=== PATIENT | male | born 1950 | race Caucasian/White ===

== ENCOUNTER 2019-07-26 00:46 | Inpatient (IN) | payer MEDICARE ==
[2019-07-26 13:49] VITALS: BP 138/57
[2019-07-26] MEDS ORDERED: Magnesium Hydroxide (MOM) 30 mL UDC PO PRN (14:22)
--- NOTE | 2019-07-26 18:48 | History and Physical ---
History of Present Illness - HPI Chief Complaint: 68 y/o male patient was brought into ER on a 5150 Hold. HPI: 68 y/o male patient was brought into [facility] on a 5150 Hold. Patient has history of TIA, CAD, Hyperlipidemia, Shizoaffective disorder, Bipolar disorder and Dementia. Patient had an ER assessment and a complete workup was done. Patient was diagnosed with Dementia with behavioral disturbances, Schizoaffective disorder, H/o of CAD, H/o Stroke and H/o Hyperlipidemia. Patient will have a Psych evaluation. I will follow, treat and monitor patient. Patient will continue current treatment plan a s ordered. Vital Signs: Last Vital Signs Temp 96.8 F 07/26/19 15:31 Pulse 68 07/26/19 15:31 Resp 19 07/26/19 15:31 BP 138/57 07/26/19 15:31 Pulse Ox 96 07/26/19 15:31 Past Medical History Cardiovascular: Report: CAD Pulmonary: Report: No Pertinent Hx, Pulmonary Embolus [employer]IAN: Report: Dementia GI: Report: No Pertinent Hx Psych: Report: Other (Schizoaffective disorder.) Musculoskeletal: Report: No Pertinent Hx Rheumatologic: Report: No pertinent Hx Infectious Disease: Report: No Pertinent Hx Renal/: Report: No Pertinent Hx Family Medical History - Family Member Son History Unknown: Yes Social History Smoke: No Alcohol: None Drugs: None Lives: Fdc Domestic Violence: Negative Health Maintenance Health Maintenance: Other (Please see chart.) - Medications Home Medications: Home Medication Medication Instructions Recorded Type Acetaminophen [Tylenol] 650 mg PO Q4H PRN tab 08/08/19 Rx Al Hyd/Mg Hyd/Simethicone [Maalox] 30 ml PO Q4HR PRN udc 08/08/19 Rx Aspirin 325 mg PO DAILY tab 08/08/19 Rx Atorvastatin Calcium [Lipitor] 80 mg PO HS tab 08/08/19 Rx Clopidogrel [Plavix] 75 mg PO DAILY tab 08/08/19 Rx Divalproex Sprinkle [Depakote 250 mg PO DAILY ecc 08/08/19 Rx Sprinkle] Divalproex Sprinkle [Depakote 500 mg PO HS ecc 08/08/19 Rx Sprinkle] Docusate Sodium [Colace] 100 mg PO BID cap 08/08/19 Rx Lorazepam [Ativan] 0.5 mg PO Q4H PRN tab 08/08/19 Rx Magnesium Hydroxide [Milk of 30 ml PO HS PRN udc 08/08/19 Rx Magnesia] Menthol/Zinc Oxide [Calmoseptine] 1 appl TP QID PRN appl 08/08/19 Rx QUEtiapine Fumarate [SEROquel] 50 mg PO BID tab 08/08/19 Rx QUEtiapine Fumarate [SEROquel] 150 mg PO HS tab 08/08/19 Rx QUEtiapine Fumarate [SEROquel] 150 mg PO HS tab 08/08/19 Rx Zolpidem Tartrate [Ambien] 5 mg PO HS PRN tab 08/08/19 Rx Acetaminophen [Tylenol] 650 mg PO Q4H PRN tab 08/14/19 Rx Al Hyd/Mg Hyd/Simethicone [Maalox] 30 ml PO Q4HR PRN udc 08/14/19 Rx Aspirin 325 mg PO DAILY tab 08/14/19 Rx Atorvastatin Calcium [Lipitor] 80 mg PO DAILY tab 08/14/19 Rx Clopidogrel [Plavix] 75 mg PO DAILY tab 08/14/19 Rx Divalproex Sprinkle [Depakote 250 mg PO DAILY ecc 08/14/19 Rx Sprinkle] Divalproex Sprinkle [Depakote 500 mg PO HS ecc 08/14/19 Rx Sprinkle] Docusate Sodium [Colace] 100 mg PO BID cap 08/14/19 Rx Lorazepam [Ativan] 0.5 mg PO Q4HR PRN tab 08/14/19 Rx Magnesium Hydroxide [Milk of 30 ml PO HS PRN udc 08/14/19 Rx Magnesia] Menthol/Zinc Oxide [Calmoseptine] 1 appl TP QID PRN appl 08/14/19 Rx QUEtiapine Fumarate [SEROquel] 50 mg PO BID tab 08/14/19 Rx QUEtiapine Fumarate [SEROquel] 200 mg PO HS tab 08/14/19 Rx Zolpidem Tartrate [Ambien] 5 mg PO HS PRN tab 08/14/19 Rx Other Medications: Please see medication reconciliation sheet. - Allergies Allergies/Adverse Reactions: Allergies Allergy/AdvReac Type Severity Reaction Status Date / Time No Known Allergies Allergy Verified 06/29/19 17:24 Review of Systems - Review of Systems Review of Systems: patient is on 5150 hold due to hostile behavior towards staff. Constitutional: Report: No Significant Eyes: Report: No Significant ENT: Report: No Significant Respiratory: Report: No Significant Cardiovascular: Report: No Significant Gastrointestinal: Report: No Significant Genitourinary: Report: No Significant Musculoskeletal: Report: No Significant Skin: Report: No Significant Neurological: Report: Confusion Physical Exam - Physical Exam HEENT: Report: Ears Nose Throat within normal limits Neck: Report: Within normal limits Cardiovascular Systems: Report: +s1/s2 noted Respiratory: Report: Breath Sounds are within normal limits Abdomen: Report: Non-tender to palpation Back: Report: Inspection of back is within normal limits. Extremities: Report: Non-tender to palpation. Skin: Report: Color of skin is within normal limits Neuro/Psych: Report: Disoriented to name time or place - Lab Results All Lab Results last 24 hours: please see orders. - Assessment Assessment: Dementia with behavioral disturbances. Schizoaffective disorder. History of Stroke. History of Hyperlipidemia. History of TIA. History of CAD. - Plan Plan: Continuation of care. Monitor vitals and labs. Continue present meds as directed. Monitor diet/nutritional support. Supportive care. Psych management per Psych. Continue current treatment plan as ordered.
[2019-07-27] MEDS ORDERED: Maalox 30 mL Cup PO PRN (09:10)
--- NOTE | 2019-07-28 09:29 | Consultation ---
DATE OF CONSULTATION: 07/27/2019 The patient was seen and evaluated. The patient's chart reviewed. The patient was brought in here on a 5150. He was selectively mute, disoriented, needing redirection and easily agitated. Today, on [id number] evaluation, the patient is in the Idalia chair. He is observed to be responding, making hand gestures in regards to the voices, easily irritable, agitated, needing a lot of redirection. ALLERGIES TO MEDICATIONS: NKDA. PREVIOUS DIAGNOSES: TIA, CAD, hyperlipidemia. PREVIOUS PSYCHIATRIC HISTORY: History of schizoaffective disorder, bipolar type; dementia. MEDICAL: Please see H and P. ESTIMATED LENGTH OF STAY: Between 5-10 days. MENTAL STATUS EXAMINATION: Older age appearing, Idalia chair, disengaged, confused, disorganized, and at times talking to himself. SOCIAL HISTORY: Not answering questions about social history. FAMILY PSYCHIATRIC HISTORY: Unclear. MEDICATIONS: Per records from [facility], medications reviewed, include acetaminophen, aspirin, ____, Coreg, Depakote, Ativan as needed, Maalox, Seroquel 100 mg a day, 200 at nighttime. PROVISIONAL DIAGNOSTIC IMPRESSION: PRIMARY DIAGNOSES: Dementia with behavior disturbances, schizoaffective disorder. MEDICAL DIAGNOSIS: As noted above. PLAN: 1. Admit the patient. 2. I will obtain more collateral baseline information. 3. Continue to monitor, supervise. 4. Further collaborate on the patient's medication regimen reconciliation from the reports, the patient's Seroquel 50 mg p.o. b.i.d. There is an additional 25 mg, a total of 75 mg p.o. b.i.d. of the Seroquel, Depakote, ____, total Depakote levels pending. We will continue monitoring and evaluating. JOB# [id number]
--- NOTE | 2019-07-28 09:48 | Internal Medicine Prog Note ---
Internal Medicine Subjective - Subjective Patient seen and examined:: with staff Patient is:: awake, aren chair, agitated, confused Per staff patient has:: no adverse event, no episodes of fall, agitated, confused Internal Medicine Objective - Physical Exam Vitals and I&O: Vital Signs Temp 97.8 F 07/28/19 06:01 Pulse 83 07/28/19 06:01 Resp 18 07/28/19 06:01 BP 115/57 07/28/19 06:01 Pulse Ox 96 07/28/19 06:01 Intake & Output 07/27/19 07/28/19 07/28/19 18:59 06:59 18:59 Intake Total 1200 480 Output Total 2 Balance 1200 478 Intake: Oral 1200 480 Output: Urine/Stool Mix 2 Other: # Voids 1 # Bowel Movements 1 1 Active Medications: Current Medications Acetaminophen (Tylenol) 650 mg PO Q4H PRN PRN Reason: Mild Pain/Headache/T above 101 Stop: 09/24/19 14:21 Al Hydrox/Mg Hydrox/Simethicone (Maalox) 30 ml PO Q4HR PRN PRN Reason: FPR HEARTBURN Stop: 09/25/19 09:09 Aspirin (Aspirin) 325 mg PO DAILY [facility] Stop: 09/25/19 08:59 Last Admin: 07/28/19 08:44 Dose: 325 mg Atorvastatin Calcium (Lipitor) 80 mg PO HS [facility]; Protocol Stop: 09/25/19 20:59 Last Admin: 07/27/19 21:20 Dose: 80 mg Clopidogrel Bisulfate (Plavix) 75 mg PO DAILY [facility] Stop: 09/25/19 08:59 Last Admin: 07/28/19 08:44 Dose: 75 mg Divalproex Sodium (Depakote Er) 250 mg PO HS [facility]; Protocol Stop: 09/25/19 20:59 Last Admin: 07/27/19 21:20 Dose: 250 mg Divalproex Sodium (Depakote Er) 250 mg PO QPM [facility]; Protocol Stop: 09/25/19 16:59 Last Admin: 07/27/19 18:14 Dose: 250 mg Docusate Sodium (Colace) 100 mg PO BID [facility] Stop: 09/25/19 16:59 Last Admin: 07/28/19 08:44 Dose: 100 mg Lorazepam (Ativan) 0.5 mg PO Q4H PRN; Protocol PRN Reason: Anxiety/Agitation Stop: 09/24/19 14:21 Last Admin: 07/28/19 08:44 Dose: 0.5 mg Magnesium Hydroxide (Milk Of Magnesia) 30 ml PO HS PRN PRN Reason: Constipation Stop: 09/24/19 14:21 Quetiapine Fumarate (Seroquel) 75 mg PO BID [facility]; Protocol Stop: 09/26/19 08:59 Last Admin: 07/28/19 08:44 Dose: 75 mg Zolpidem Tartrate (Ambien) 5 mg PO HS PRN PRN Reason: Insomnia Stop: 09/24/19 14:21 Last Admin: 07/27/19 21:24 Dose: 5 mg General: weak, alert, disheveled HEENT: NC/AT Neck: Supple, No JVD Lungs: other (no acute respiratory distress) Cardiovascular: RRR Abdomen: soft, non-tender, non-distended Extremities: ecchymosis Neurological: unable to follow command (confused, demented) Internal Medicine Assmt/Plan - Assessment Assessment: Dementia Schizoaffective disorder Hx CAD Hx Stoke Hyperlipidemia - Plan Plan: Continue current treatment plan. Monitor Labs.Continue current medications Continue to monitor VS Monitor Diet/Nutritional support. Psych management per Psychiatry. Pain Management. Wound Care consult - pending - ordered yesterday PT/OT prn Safety precaution, Fall precaution, frequent nursing round. Supportive care. Continue collaborating with consulting specialists, case management and nursing team.
--- NOTE | 2019-07-28 18:53 | Progress Notes ---
DATE: 07/28/2019 SUBJECTIVE: The patient was seen and evaluated. The patient's chart reviewed. Today on [id number] evaluation, the patient is in Id[place] chair. He is extremely uncomfortable, moving, restless, needs a lot of redirection to minimize to behavior. He is to have difficulty verbalizing what he is experiencing further review of the chart. I reviewed that the patient has a history of buttock sacral ulcer. I spoke with the patient's nurse the importance of followup today with the medical evaluation to further assess the patient's sacral buttocks ulcer as this make me contributing to the patient's behavior and irritability. ASSESSMENT AND PLAN: The patient has history of schizoaffective disorder, dementia, was also medications from the group home reviewed. The patient has had been on 2 different antipsychotics which is unclear and recently had been re-titrated to 75 mg p.o. b.i.d. of the Seroquel. We will continue with the current medication regimen and awaiting medical evaluation to continue further assessing the patient's sacral ulcer. Vitals, pulse and temperature within normal limits. JOB# [id number]
--- NOTE | 2019-07-29 09:49 | Internal Medicine Prog Note ---
Internal Medicine Subjective - Subjective Service Date: 07/29/19 Patient seen and examined:: with staff Patient is:: awake, aren chair, agitated, confused Patient Complaints of:: other (Anxiety.) Per staff patient has:: no adverse event, no episodes of fall, agitated, confused Internal Medicine Objective - Physical Exam Vitals and I&O: Vital Signs Temp 97.9 F 07/29/19 06:00 Pulse 81 07/29/19 06:00 Resp 19 07/29/19 06:00 BP 136/80 07/29/19 06:00 Pulse Ox 95 07/29/19 06:00 Intake & Output 07/28/19 07/29/19 07/29/19 18:59 06:59 18:59 Intake Total 850 180 Output Total 1 Balance 850 179 Intake: Oral 850 180 Output: Urine/Stool Mix 1 Other: # Voids 3 1 # Bowel Movements 1 1 Active Medications: Current Medications Acetaminophen (Tylenol) 650 mg PO Q4H PRN PRN Reason: Mild Pain/Headache/T above 101 Stop: 09/24/19 14:21 Al Hydrox/Mg Hydrox/Simethicone (Maalox) 30 ml PO Q4HR PRN PRN Reason: FPR HEARTBURN Stop: 09/25/19 09:09 Aspirin (Aspirin) 325 mg PO DAILY [facility] Stop: 09/25/19 08:59 Last Admin: 07/28/19 08:44 Dose: 325 mg Atorvastatin Calcium (Lipitor) 80 mg PO HS [facility]; Protocol Stop: 09/25/19 20:59 Last Admin: 07/28/19 21:57 Dose: 80 mg Clopidogrel Bisulfate (Plavix) 75 mg PO DAILY [facility] Stop: 09/25/19 08:59 Last Admin: 07/28/19 08:44 Dose: 75 mg Divalproex Sodium (Depakote Er) 250 mg PO HS [facility]; Protocol Stop: 09/25/19 20:59 Last Admin: 07/28/19 21:57 Dose: 250 mg Divalproex Sodium (Depakote Er) 250 mg PO QPM [facility]; Protocol Stop: 09/25/19 16:59 Last Admin: 07/28/19 16:33 Dose: 250 mg Docusate Sodium (Colace) 100 mg PO BID [facility] Stop: 09/25/19 16:59 Last Admin: 07/28/19 16:32 Dose: 100 mg Lorazepam (Ativan) 0.5 mg PO Q4H PRN; Protocol PRN Reason: Anxiety/Agitation Stop: 09/24/19 14:21 Last Admin: 07/28/19 08:44 Dose: 0.5 mg Magnesium Hydroxide (Milk Of Magnesia) 30 ml PO HS PRN PRN Reason: Constipation Stop: 09/24/19 14:21 Quetiapine Fumarate (Seroquel) 75 mg PO BID [facility]; Protocol Stop: 09/26/19 08:59 Last Admin: 07/28/19 16:32 Dose: 75 mg Zolpidem Tartrate (Ambien) 5 mg PO HS PRN PRN Reason: Insomnia Stop: 09/24/19 14:21 Last Admin: 07/27/19 21:24 Dose: 5 mg General: weak, alert, disheveled HEENT: NC/AT Neck: Supple, No JVD Lungs: other (no acute respiratory distress) Cardiovascular: RRR Abdomen: soft, non-tender, non-distended Extremities: ecchymosis Neurological: no change, unable to follow command (confused, demented) Internal Medicine Assmt/Plan - Assessment Assessment: Dementia. Schizoaffective disorder. H/o CAD. H/o Stroke. H/o Hyperlipidemia. - Plan Plan: Continuation of care. Monitor labs and vitals. Monitor diet/nutritional support. Psych management per Psych. Continue present meds as directed. Continue current treatment plan as ordered. Nutritional Asmnt/Malnutr-PDOC - Dietary Evaluation Malnutrition Findings (Please click <Entered> for more info): see orders
--- NOTE | 2019-07-29 23:58 | Progress Notes ---
DATE: 07/29/2019 SUBJECTIVE: The patient in the hospital. Currently in a [place] chair, very confused, disoriented, not really answering any questions, difficult interview. Noted to be restless, needing a lot of redirection, history of schizoaffective, ulcers as well. Medication adjustments have been made. Very confused, AO to essentially 1 only, preoccupied, irritable, disorganized. Medications were noted. We will continue to monitor. JOB# [id number]
--- NOTE | 2019-07-30 16:46 | Internal Medicine Prog Note ---
Internal Medicine Subjective - Subjective Service Date: 07/30/19 Patient is:: awake, aren chair, agitated, confused Patient Complaints of:: other (Anxiety.) Per staff patient has:: no adverse event, no episodes of fall, agitated, confused Internal Medicine Objective - Physical Exam Vitals and I&O: Vital Signs Temp 97.7 F 07/30/19 14:00 Pulse 75 07/30/19 14:00 Resp 18 07/30/19 14:00 BP 115/67 07/30/19 14:00 Pulse Ox 97 07/30/19 14:00 Intake & Output 07/29/19 07/30/19 07/30/19 18:59 06:59 18:59 Intake Total 800 120 Output Total 1 Balance 800 119 Intake: Oral 800 120 Output: Urine/Stool Mix 1 Other: # Voids 3 1 # Bowel Movements 2 1 Stool Characteristics Soft Formed Brown Active Medications: Current Medications Acetaminophen (Tylenol) 650 mg PO Q4H PRN PRN Reason: Mild Pain/Headache/T above 101 Stop: 09/24/19 14:21 Al Hydrox/Mg Hydrox/Simethicone (Maalox) 30 ml PO Q4HR PRN PRN Reason: FPR HEARTBURN Stop: 09/25/19 09:09 Aspirin (Aspirin) 325 mg PO DAILY [facility] Stop: 09/25/19 08:59 Last Admin: 07/30/19 09:23 Dose: Not Given Atorvastatin Calcium (Lipitor) 80 mg PO HS [facility]; Protocol Stop: 09/25/19 20:59 Last Admin: 07/29/19 22:00 Dose: 80 mg Clopidogrel Bisulfate (Plavix) 75 mg PO DAILY [facility] Stop: 09/25/19 08:59 Last Admin: 07/30/19 09:23 Dose: Not Given Divalproex Sodium (Depakote Er) 250 mg PO HS [facility]; Protocol Stop: 09/25/19 20:59 Last Admin: 07/29/19 22:00 Dose: 250 mg Divalproex Sodium (Depakote Er) 250 mg PO QPM [facility]; Protocol Stop: 09/25/19 16:59 Last Admin: 07/29/19 17:50 Dose: 250 mg Docusate Sodium (Colace) 100 mg PO BID [facility] Stop: 09/25/19 16:59 Last Admin: 07/30/19 09:23 Dose: Not Given Lorazepam (Ativan) 0.5 mg PO Q4H PRN; Protocol PRN Reason: Anxiety/Agitation Stop: 09/24/19 14:21 Last Admin: 07/30/19 13:55 Dose: 0.5 mg Magnesium Hydroxide (Milk Of Magnesia) 30 ml PO HS PRN PRN Reason: Constipation Stop: 09/24/19 14:21 Quetiapine Fumarate 25 mg/ (Quetiapine Fumarate 50 mg) 75 mg PO BID [facility] Stop: 09/28/19 08:59 Last Admin: 07/30/19 09:23 Dose: Not Given Zolpidem Tartrate (Ambien) 5 mg PO HS PRN PRN Reason: Insomnia Stop: 09/24/19 14:21 Last Admin: 07/27/19 21:24 Dose: 5 mg General: weak, alert, disheveled HEENT: NC/AT Neck: Supple, No JVD Lungs: other (no acute respiratory distress) Cardiovascular: RRR Abdomen: soft, non-tender, non-distended Extremities: ecchymosis Neurological: no change, unable to follow command (confused, demented) Internal Medicine Assmt/Plan - Assessment Assessment: Dementia. Schizoaffective disorder. H/o CAD. H/o Stroke. H/o Hyperlipidemia. - Plan Plan: Continuation of care. Monitor labs and vitals. Monitor diet/nutritional support. Psych management per Psych. Continue present meds as directed. Continue current treatment plan as ordered.
--- NOTE | 2019-07-31 14:41 | Internal Medicine Prog Note ---
Internal Medicine Subjective - Subjective Service Date: 07/31/19 Patient seen and examined:: with staff Patient is:: awake, aren chair, agitated, confused Patient Complaints of:: other (Anxiety.) Per staff patient has:: no adverse event, no episodes of fall, agitated, confused Internal Medicine Objective - Physical Exam Vitals and I&O: Vital Signs Temp 97.6 F 07/31/19 05:21 Pulse 60 07/31/19 05:21 Resp 19 07/31/19 05:21 BP 109/62 07/31/19 05:21 Pulse Ox 97 07/31/19 05:21 Intake & Output 07/30/19 07/31/19 07/31/19 18:59 06:59 18:59 Intake Total 700 180 Balance 700 180 Intake: Oral 700 180 Other: # Voids 3 1 # Bowel Movements 0 0 Active Medications: Current Medications Acetaminophen (Tylenol) 650 mg PO Q4H PRN PRN Reason: Mild Pain/Headache/T above 101 Stop: 09/24/19 14:21 Al Hydrox/Mg Hydrox/Simethicone (Maalox) 30 ml PO Q4HR PRN PRN Reason: FPR HEARTBURN Stop: 09/25/19 09:09 Aspirin (Aspirin) 325 mg PO DAILY [facility] Stop: 09/25/19 08:59 Last Admin: 07/31/19 08:17 Dose: 325 mg Atorvastatin Calcium (Lipitor) 80 mg PO HS [facility]; Protocol Stop: 09/25/19 20:59 Last Admin: 07/30/19 21:34 Dose: 80 mg Clopidogrel Bisulfate (Plavix) 75 mg PO DAILY [facility] Stop: 09/25/19 08:59 Last Admin: 07/31/19 08:17 Dose: 75 mg Divalproex Sodium (Depakote Sprinkle) 250 mg PO HS [facility]; Protocol Stop: 09/29/19 20:59 Divalproex Sodium (Depakote Sprinkle) 250 mg PO QPM [facility]; Protocol Stop: 09/29/19 16:59 Docusate Sodium (Colace) 100 mg PO BID [facility] Stop: 09/25/19 16:59 Last Admin: 07/31/19 08:17 Dose: 100 mg Lorazepam (Ativan) 0.5 mg PO Q4H PRN; Protocol PRN Reason: Anxiety/Agitation Stop: 09/24/19 14:21 Last Admin: 07/30/19 13:55 Dose: 0.5 mg Magnesium Hydroxide (Milk Of Magnesia) 30 ml PO HS PRN PRN Reason: Constipation Stop: 09/24/19 14:21 Quetiapine Fumarate 25 mg/ (Quetiapine Fumarate 50 mg) 75 mg PO BID [facility] Stop: 09/28/19 08:59 Last Admin: 07/31/19 08:17 Dose: 75 mg Zolpidem Tartrate (Ambien) 5 mg PO HS PRN PRN Reason: Insomnia Stop: 09/24/19 14:21 Last Admin: 07/27/19 21:24 Dose: 5 mg Physical Exam: Patient is easily agitated and very confused. General: weak, alert, disheveled HEENT: NC/AT Neck: Supple, No JVD Lungs: other (no acute respiratory distress) Cardiovascular: RRR Abdomen: soft, non-tender, non-distended Extremities: ecchymosis Neurological: no change, unable to follow command (confused, demented) Internal Medicine Assmt/Plan - Assessment Assessment: Dementia. Schizoaffective disorder. H/o CAD. H/o Stroke. H/o Hyperlipidemia. - Plan Plan: Continuation of care. Monitor labs and vitals. Monitor diet/nutritional support. Psych management per Psych. Continue present meds as directed. Continue current treatment plan as ordered. Nutritional Asmnt/Malnutr-PDOC - Dietary Evaluation Malnutrition Findings (Please click <Entered> for more info): see orders.
--- NOTE | 2019-07-31 14:44 | Internal Medicine Prog Note ---
Internal Medicine Subjective - Subjective Service Date: 07/31/19 Patient seen and examined:: with staff Patient is:: awake, aren chair, agitated, confused Patient Complaints of:: other (Anxiety.) Per staff patient has:: no adverse event, no episodes of fall, agitated, confused Internal Medicine Objective - Physical Exam Vitals and I&O: Vital Signs Temp 97.6 F 07/31/19 05:21 Pulse 60 07/31/19 05:21 Resp 19 07/31/19 05:21 BP 109/62 07/31/19 05:21 Pulse Ox 97 07/31/19 05:21 Intake & Output 07/30/19 07/31/19 07/31/19 18:59 06:59 18:59 Intake Total 700 180 Balance 700 180 Intake: Oral 700 180 Other: # Voids 3 1 # Bowel Movements 0 0 Active Medications: Current Medications Acetaminophen (Tylenol) 650 mg PO Q4H PRN PRN Reason: Mild Pain/Headache/T above 101 Stop: 09/24/19 14:21 Al Hydrox/Mg Hydrox/Simethicone (Maalox) 30 ml PO Q4HR PRN PRN Reason: FPR HEARTBURN Stop: 09/25/19 09:09 Aspirin (Aspirin) 325 mg PO DAILY [facility] Stop: 09/25/19 08:59 Last Admin: 07/31/19 08:17 Dose: 325 mg Atorvastatin Calcium (Lipitor) 80 mg PO HS [facility]; Protocol Stop: 09/25/19 20:59 Last Admin: 07/30/19 21:34 Dose: 80 mg Clopidogrel Bisulfate (Plavix) 75 mg PO DAILY [facility] Stop: 09/25/19 08:59 Last Admin: 07/31/19 08:17 Dose: 75 mg Divalproex Sodium (Depakote Sprinkle) 250 mg PO HS [facility]; Protocol Stop: 09/29/19 20:59 Divalproex Sodium (Depakote Sprinkle) 250 mg PO QPM [facility]; Protocol Stop: 09/29/19 16:59 Docusate Sodium (Colace) 100 mg PO BID [facility] Stop: 09/25/19 16:59 Last Admin: 07/31/19 08:17 Dose: 100 mg Lorazepam (Ativan) 0.5 mg PO Q4H PRN; Protocol PRN Reason: Anxiety/Agitation Stop: 09/24/19 14:21 Last Admin: 07/30/19 13:55 Dose: 0.5 mg Magnesium Hydroxide (Milk Of Magnesia) 30 ml PO HS PRN PRN Reason: Constipation Stop: 09/24/19 14:21 Quetiapine Fumarate 25 mg/ (Quetiapine Fumarate 50 mg) 75 mg PO BID [facility] Stop: 09/28/19 08:59 Last Admin: 07/31/19 08:17 Dose: 75 mg Zolpidem Tartrate (Ambien) 5 mg PO HS PRN PRN Reason: Insomnia Stop: 09/24/19 14:21 Last Admin: 07/27/19 21:24 Dose: 5 mg Physical Exam: Patient is still very confused and in irritable mood. General: weak, alert, disheveled HEENT: NC/AT Neck: Supple, No JVD Lungs: other (no acute respiratory distress) Cardiovascular: RRR Abdomen: soft, non-tender, non-distended Extremities: ecchymosis Neurological: no change, unable to follow command (confused, demented) Internal Medicine Assmt/Plan - Assessment Assessment: Dementia. Schizoaffective disorder. H/o CAD. H/o Stroke. H/o Hyperlipidemia. - Plan Plan: Continuation of care. Monitor labs and vitals. Monitor diet/nutritional support. Psych management per Psych. Continue present meds as directed. Continue current treatment plan as ordered. Nutritional Asmnt/Malnutr-PDOC - Dietary Evaluation Malnutrition Findings (Please click <Entered> for more info): see orders.
--- NOTE | 2019-07-31 16:38 | Progress Notes ---
DATE: 07/30/2019 SUBJECTIVE: The patient is still confused and disoriented. The patient also is still having difficulty with his mood and difficulty with expressing himself. The patient also is still restless and has mood swings. Otherwise, the patient is compliant with medications with no side effects. ASSESSMENT: The patient is still confused and irritable with mood swings. TREATMENT PLAN: We will continue monitoring his behavior closely. Also, we will continue Seroquel and Depakote and we will get Depakote blood level today and continue to follow up. JOB# [id number]
--- NOTE | 2019-08-01 14:58 | Internal Medicine Prog Note ---
Internal Medicine Subjective - Subjective Service Date: 08/01/19 Patient is:: awake, aren chair, agitated, confused Patient Complaints of:: other (Anxiety.) Per staff patient has:: no adverse event, no episodes of fall, agitated, confused Internal Medicine Objective - Physical Exam Vitals and I&O: Vital Signs Temp 97.2 F 07/31/19 20:45 Pulse 74 07/31/19 20:45 Resp 20 07/31/19 20:45 BP 102/70 07/31/19 20:45 Pulse Ox 97 07/31/19 20:45 Intake & Output 07/31/19 08/01/19 08/01/19 18:59 06:59 18:59 Intake Total 800 120 Balance 800 120 Intake: Oral 800 120 Other: # Voids 3 3 # Bowel Movements 1 Active Medications: Current Medications Acetaminophen (Tylenol) 650 mg PO Q4H PRN PRN Reason: Mild Pain/Headache/T above 101 Stop: 09/24/19 14:21 Last Admin: 07/31/19 20:17 Dose: 650 mg Al Hydrox/Mg Hydrox/Simethicone (Maalox) 30 ml PO Q4HR PRN PRN Reason: FPR HEARTBURN Stop: 09/25/19 09:09 Aspirin (Aspirin) 325 mg PO DAILY DANNY Stop: 09/25/19 08:59 Last Admin: 08/01/19 08:13 Dose: 325 mg Atorvastatin Calcium (Lipitor) 80 mg PO HS DANNY; Protocol Stop: 09/25/19 20:59 Last Admin: 07/31/19 20:16 Dose: 80 mg Calamine/Phenol (Calmoseptine) 1 appl TP QID PRN PRN Reason: Skin Irritation Stop: 09/29/19 17:06 Clopidogrel Bisulfate (Plavix) 75 mg PO DAILY DANNY Stop: 09/25/19 08:59 Last Admin: 08/01/19 08:13 Dose: 75 mg Divalproex Sodium (Depakote Sprinkle) 250 mg PO HS DANNY; Protocol Stop: 09/29/19 20:59 Last Admin: 07/31/19 20:16 Dose: 250 mg Divalproex Sodium (Depakote Sprinkle) 250 mg PO QPM DANNY; Protocol Stop: 09/29/19 16:59 Last Admin: 07/31/19 16:33 Dose: 250 mg Docusate Sodium (Colace) 100 mg PO BID DANNY Stop: 09/25/19 16:59 Last Admin: 08/01/19 08:13 Dose: 100 mg Lorazepam (Ativan) 0.5 mg PO Q4H PRN; Protocol PRN Reason: Anxiety/Agitation Stop: 09/24/19 14:21 Last Admin: 08/01/19 08:13 Dose: 0.5 mg Magnesium Hydroxide (Milk Of Magnesia) 30 ml PO HS PRN PRN Reason: Constipation Stop: 09/24/19 14:21 Quetiapine Fumarate 25 mg/ (Quetiapine Fumarate 50 mg) 75 mg PO BID DANNY Stop: 09/28/19 08:59 Last Admin: 08/01/19 08:13 Dose: 75 mg Zolpidem Tartrate (Ambien) 5 mg PO HS PRN PRN Reason: Insomnia Stop: 09/24/19 14:21 Last Admin: 07/27/19 21:24 Dose: 5 mg General: weak, alert, disheveled HEENT: NC/AT Neck: Supple, No JVD Lungs: other (no acute respiratory distress) Cardiovascular: RRR Abdomen: soft, non-tender, non-distended Extremities: ecchymosis Neurological: no change, unable to follow command (confused, demented) Internal Medicine Assmt/Plan - Assessment Assessment: Dementia. Schizoaffective disorder. H/o CAD. H/o Stroke. H/o Hyperlipidemia. - Plan Plan: Continuation of care. Monitor labs and vitals. Monitor diet/nutritional support. Psych management per Psych. Continue present meds as directed. Continue current treatment plan as ordered.
--- NOTE | 2019-08-01 21:28 | Progress Notes ---
DATE: 07/31/2019 SUBJECTIVE: Chart reviewed and the patient interviewed. Also discussed the patient's condition with the staff and reviewed records and labs. The patient continued to be confused and still has disorganized thoughts. The patient also is preoccupied and is easily irritable and easily agitated especially when talking to him ____. Also unable to carry on any coherent conversation ____, otherwise the patient is continued to be compliant with taking his medication with no side effects from the medications. ASSESSMENT: The patient is still confused and considered to be gravely disabled. TREATMENT PLAN: Continue Seroquel and Depakote at same dose. The patient has been having difficulty swallowing Depakote extended release and changed it to Depakote Sprinkles for easier to swallow. Also, Depakote blood level was ordered and results are pending. Also, questionable if the patient can return to previous placement. JOB# [id number]
[2019-08-02] MEDS: Menthol/Zinc Oxide Oint 113gm Tube TP PRN (00:43)
--- NOTE | 2019-08-02 10:44 | Internal Medicine Prog Note ---
Internal Medicine Subjective - Subjective Service Date: 08/02/19 Patient seen and examined:: with staff Patient is:: awake, aren chair, agitated, confused Patient Complaints of:: other (Anxiety.) Per staff patient has:: no adverse event, no episodes of fall, agitated, confused Internal Medicine Objective - Physical Exam Vitals and I&O: Vital Signs Temp 97.7 F 08/01/19 20:54 Pulse 98 08/01/19 20:54 Resp 20 08/01/19 20:54 BP 100/72 08/01/19 20:54 Pulse Ox 95 08/01/19 20:54 Intake & Output 08/01/19 08/02/19 08/02/19 18:59 06:59 18:59 Intake Total 1300 Balance 1300 Intake: Oral 1300 Other: # Voids 4 # Bowel Movements 0 Active Medications: Current Medications Acetaminophen (Tylenol) 650 mg PO Q4H PRN PRN Reason: Mild Pain/Headache/T above 101 Stop: 09/24/19 14:21 Last Admin: 07/31/19 20:17 Dose: 650 mg Al Hydrox/Mg Hydrox/Simethicone (Maalox) 30 ml PO Q4HR PRN PRN Reason: FPR HEARTBURN Stop: 09/25/19 09:09 Aspirin (Aspirin) 325 mg PO DAILY DANNY Stop: 09/25/19 08:59 Last Admin: 08/02/19 08:40 Dose: 325 mg Atorvastatin Calcium (Lipitor) 80 mg PO HS DANNY; Protocol Stop: 09/25/19 20:59 Last Admin: 08/01/19 20:04 Dose: 80 mg Calamine/Phenol (Calmoseptine) 1 appl TP QID PRN PRN Reason: Skin Irritation Stop: 09/29/19 17:06 Last Admin: 08/02/19 00:43 Dose: 1 appl Clopidogrel Bisulfate (Plavix) 75 mg PO DAILY DANNY Stop: 09/25/19 08:59 Last Admin: 08/02/19 08:39 Dose: 75 mg Divalproex Sodium (Depakote Sprinkle) 250 mg PO HS DANNY; Protocol Stop: 09/29/19 20:59 Last Admin: 08/01/19 20:04 Dose: 250 mg Divalproex Sodium (Depakote Sprinkle) 250 mg PO QPM DANNY; Protocol Stop: 09/29/19 16:59 Last Admin: 08/01/19 17:19 Dose: 250 mg Docusate Sodium (Colace) 100 mg PO BID DANNY Stop: 09/25/19 16:59 Last Admin: 08/02/19 08:40 Dose: 100 mg Lorazepam (Ativan) 0.5 mg PO Q4H PRN; Protocol PRN Reason: Anxiety/Agitation Stop: 09/24/19 14:21 Last Admin: 08/02/19 05:32 Dose: 0.5 mg Magnesium Hydroxide (Milk Of Magnesia) 30 ml PO HS PRN PRN Reason: Constipation Stop: 09/24/19 14:21 Quetiapine Fumarate 25 mg/ (Quetiapine Fumarate 50 mg) 75 mg PO BID DANNY Stop: 09/28/19 08:59 Last Admin: 08/02/19 08:40 Dose: 75 mg Zolpidem Tartrate (Ambien) 5 mg PO HS PRN PRN Reason: Insomnia Stop: 09/24/19 14:21 Last Admin: 08/01/19 20:05 Dose: 5 mg Physical Exam: Patient is gravely disabled and remains very confused. General: weak, alert, disheveled HEENT: NC/AT Neck: Supple, No JVD Lungs: other (no acute respiratory distress) Cardiovascular: RRR Abdomen: soft, non-tender, non-distended Extremities: ecchymosis Neurological: no change, unable to follow command (confused, demented) Internal Medicine Assmt/Plan - Assessment Assessment: Dementia. Schizoaffective disorder. H/o CAD. H/o Stroke. H/o Hyperlipidemia. - Plan Plan: Continuation of care. Monitor labs and vitals. Monitor diet/nutritional support. Psych management per Psych. Continue present meds as directed. Continue current treatment plan as ordered. Nutritional Asmnt/Malnutr-PDOC - Dietary Evaluation Malnutrition Findings (Please click <Entered> for more info): Nutritional Asmnt/Malnutrition Start: 08/01/19 15: 45 Text: Status: Complete Freq: Protocol: Document 08/01/19 15:55 YUN (Rec: 08/01/19 16:00 YUN [email or web address]) Nutritional Asmnt/Malnutrition Patient General Information Nutritional Screening Low Risk Diagnosis Psychosis Pertinent Medical Hx/Surgical Hx TIA, CAD, Hyperlipidemia, Schizoaffective Disorder, Bipolar Type, Dementia Subjective Information Pt is a 68-year-old male admitted on 07/26 on a 5150. Pt is eating 75-100% of meals Per Meal/Nutrition Activity Record. Dietary is currently providing an estimated 2370 kcals and 107gm Pro, per Pt intake, this is providing an estimated 2070 kcals and 94gm Pro to meet 100% kcal and 100+ % Pro needs- adequate to meet estimated nutritional needs. 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 Open sites have 100% red tissue. No odor, no drainage. Madiha-wound intact. Surrounding tissue has dark discolored flaky skin and scar tissue. Moisture barrier cream nearly covered all of the non-intact areas. Entire site measures 13.0 cm x 15.0 cm (includes dark discolored flaky skin, with a few sporadic non-intact sites within the dark discolored flaky skin). Spoke with pt Nurse, Kerrie, concerning wound . Suggested either a multivitamin or Lele to support wound healing, Kerrie stated he would speak with MD concerning a Multivitamin as he did not believe the pt would drink the Lele. HT: 57 WT: 155 LB (70.45 kg) BMI: 24.28 (Normal) GI: WNL, Soft, Non-tender BM: 08/01 x1 I/O: 920/Not Noted Skin: Area of Concern, CELI Leg abrasions with reddening, LT hand bruise, Sacral/Buttock open wound Alfredo: 16 Diet Order: Pureed, ANIKA Estimated Energy Needs: ( Geriatric, CBW) 4638-5760 kcals (25-30 kcals/ kg) 70-85g Pro (1.0-1.2 g/kg) 4470-0180 ml (25-30 ml/kg) Current Diet Order/ Nutrition Support Pureed, ANIKA Pertinent Medications Maalox (PRN), Lipitor, Colace, MOM (PRN) Pertinent Labs No Labs To Report. Nutritional Hx/Data Height 1.7 m Height (Calculated Centimeters) 170.2 Current Weight (lbs) 70.307 kg Weight (Calculated Kilograms) 70.3 Weight (Calculated Grams) 38902.8 [place] Body Weight 148 LB(67.27 kg) % [place] Body Weight 105 Body Mass Index (BMI) 24.3 Weight Status Approriate GI Symptoms GI Symptoms None Last BM 08/01 x1 Skin Integrity/Comment: Skin: Area of Concern, CELI Leg abrasions with reddening, LT hand bruise, Sacral/Buttock open wound Alfredo: 16 Current %PO Good (75-100%) Estimated Nutritional Goals BEE in Kcals: Using Current wt Calories/Kcals/Kg 25-30 Kcals Calculated 2260-4476 Protein: Using Current wt Protein g/k.0-1.2 Protein Calculated 70-85 Fluid: ml 3572-4480 ml (25-30 ml/kg) Nutritional Problem 1. Problem Problem Increased vitamin/mineral utilization Etiology r/t wound healing Signs/Symptoms: aeb CELI Leg abrasions with reddening, LT hand bruise, Sacral/Buttock open wound. Intervention/Recommendation Comments 1. Continue with Pureed, ANIKA diet as ordered. 2. Recommend addition of multivitamin to support wound healing and skin integrity. Expected Outcomes/Goals Expected Outcomes/Goals 1. PO intake to continue to meet >75% of nutritional needs . 2. Monitor PO intake, wt, nutrition related labs, and skin integrity to trend WNL. 3. F/U as moderate risk in 3-5 days, 08/04-08/06.
--- NOTE | 2019-08-03 01:55 | Progress Notes ---
DATE: 08/01/2019 SUBJECTIVE: Chart reviewed and the patient interviewed. Also discussed the patient's condition with the staff and reviewed records and labs. The patient is still confused and he still has disorganized thoughts and preoccupied. The patient also is still restless and is still severely confused and resisting care. The patient also is to have wound in the sacral area and staff has been turning the patient's more to avoid any of further wounds and also avoiding bed sores. Otherwise, the patient is compliant with taking his medications with no side effects of medications. ASSESSMENT: The patient is still confused and agitated. TREATMENT PLAN: Continue to monitor behavior and condition closely. Depakote blood level that was done on 07/30/2019 came back to be 18, which is subtherapeutic, but the patient was not taking Depakote regularly before. We will continue same dose and continue adjusting medications and followup. JOB# [id number]
--- NOTE | 2019-08-03 02:16 | Progress Notes ---
DATE: 08/02/2019 SUBJECTIVE: Chart reviewed and the patient interviewed. Also discussed the patient's condition with the staff and reviewed records and labs. The patient is still confused and in angry and irritable mood. The patient also is restless. Today during interview, the patient was trying to take off part of his clothes. Still have difficulty redirecting him because of confusion and because of being disoriented and irritable. Otherwise, the patient continued to comply with taking his medications with no side effects of Seroquel or Depakote. ASSESSMENT: The patient is still agitated and confused. TREATMENT PLAN: Continue to monitor behavior and condition closely. Also, continue adjusting psychotropic medications and work on behavioral modification. [facility]# [id number]
--- NOTE | 2019-08-03 07:34 | Progress Notes ---
DATE: 08/03/2019 SUBJECTIVE: The patient was seen in the dining area, currently in a [place] chair. Per nurse report, the patient has poor sleep last night, even though oral as needed medication to help him sleep were given. Today, the patient appears to be drowsy, but a poor historian, episodes of agitation, easily gets frustrated with behavioral outburst. The patient needs a lot of redirection. Otherwise, the patient is in no acute distress. OBJECTIVE: VITAL SIGNS: Temperature 97.6, heart rate 78, blood pressure 111/59, respirations 19, and 96% on room air. HEENT: Head is atraumatic and normocephalic. Eyes: Bilateral conjunctivae are clear. Bilateral pupils are equally round and reactive. NECK: Supple. No JVD. CARDIOVASCULAR: S1 and S2, without murmur. PULMONARY: Clear to auscultation. GASTROINTESTINAL: Soft and nontender without guarding. Positive bowel sounds. MUSCULOSKELETAL: No clubbing. No cyanosis noted. ASSESSMENT: 1. Dementia. 2. Hyperlipidemia. 3. Coronary artery disease. PLAN: We will keep the patient inpatient to Psychiatric Unit. We will follow up with the psychiatrist to monitor the patient's condition, behavior and progress. We will put the patient on fall and aspiration precaution. Treatment plans were discussed with the patient's nurse. Treatment plans were discussed with Dr. Newton. JOB# [id number]
--- NOTE | 2019-08-04 00:13 | Progress Notes ---
DATE: 08/03/2019 SUBJECTIVE: Chart reviewed and the patient interviewed. Also discussed the patient's condition with the staff and reviewed records and labs. The patient is still hyper talkative and hyperverbal. Also, thought processes are still circumstantial and tangential with flight of ideas. The patient is still having difficulty sleeping at night and he is still actively hallucinating and talking to himself and is trying to reach to imaginary objects that are not there. Otherwise, the patient is compliant with taking his medications with no side effects of Seroquel and Depakote. ASSESSMENT: The patient is still psychotic and hallucinating. TREATMENT PLAN: Continue to monitor behavior and his condition closely. Also, continue working on his irritability and psychosis and adjusting psychotropic medications and continue to follow up. JOB# [id number]
--- NOTE | 2019-08-04 14:10 | Internal Medicine Prog Note ---
Internal Medicine Subjective - Subjective Service Date: 08/04/19 Patient seen and examined:: with staff Patient is:: awake, verbal, aren chair, agitated, confused Patient Complaints of:: other (Anxiety.) Per staff patient has:: no adverse event, no episodes of fall, agitated, confused Internal Medicine Objective - Physical Exam Vitals and I&O: Vital Signs Temp 97.3 F 08/04/19 06:20 Pulse 64 08/04/19 06:20 Resp 18 08/04/19 06:20 BP 116/71 08/04/19 06:20 Pulse Ox 97 08/04/19 06:20 Intake & Output 08/03/19 08/04/19 08/04/19 18:59 06:59 18:59 Intake Total 1200 120 Balance 1200 120 Intake: Oral 1200 120 Other: # Voids 3 # Bowel Movements 1 Active Medications: Current Medications Acetaminophen (Tylenol) 650 mg PO Q4H PRN PRN Reason: Mild Pain/Headache/T above 101 Stop: 09/24/19 14:21 Last Admin: 08/03/19 20:48 Dose: 650 mg Al Hydrox/Mg Hydrox/Simethicone (Maalox) 30 ml PO Q4HR PRN PRN Reason: FPR HEARTBURN Stop: 09/25/19 09:09 Aspirin (Aspirin) 325 mg PO DAILY DANNY Stop: 09/25/19 08:59 Last Admin: 08/04/19 08:45 Dose: 325 mg Atorvastatin Calcium (Lipitor) 80 mg PO HS DANNY; Protocol Stop: 09/25/19 20:59 Last Admin: 08/03/19 20:48 Dose: 80 mg Calamine/Phenol (Calmoseptine) 1 appl TP QID PRN PRN Reason: Skin Irritation Stop: 09/29/19 17:06 Last Admin: 08/02/19 00:43 Dose: 1 appl Clopidogrel Bisulfate (Plavix) 75 mg PO DAILY DANNY Stop: 09/25/19 08:59 Last Admin: 08/04/19 08:44 Dose: 75 mg Divalproex Sodium (Depakote Sprinkle) 250 mg PO HS DANNY; Protocol Stop: 09/29/19 20:59 Last Admin: 08/03/19 20:48 Dose: 250 mg Divalproex Sodium (Depakote Sprinkle) 250 mg PO QPM DANNY; Protocol Stop: 09/29/19 16:59 Last Admin: 08/03/19 17:25 Dose: 250 mg Docusate Sodium (Colace) 100 mg PO BID DANNY Stop: 09/25/19 16:59 Last Admin: 08/04/19 08:44 Dose: 100 mg Lorazepam (Ativan) 0.5 mg PO Q4H PRN; Protocol PRN Reason: Anxiety/Agitation Stop: 09/24/19 14:21 Last Admin: 08/03/19 20:48 Dose: 0.5 mg Magnesium Hydroxide (Milk Of Magnesia) 30 ml PO HS PRN PRN Reason: Constipation Stop: 09/24/19 14:21 Quetiapine Fumarate (Seroquel) 50 mg PO BID DANNY Stop: 10/03/19 08:59 Last Admin: 08/04/19 08:45 Dose: 50 mg Quetiapine Fumarate (Seroquel) 100 mg PO HS DANNY; Protocol Stop: 10/03/19 20:59 Zolpidem Tartrate (Ambien) 5 mg PO HS PRN PRN Reason: Insomnia Stop: 09/24/19 14:21 Last Admin: 08/01/19 20:05 Dose: 5 mg Physical Exam: Patient is still hallucination, psychotic and hyper talkative. General: weak, alert, disheveled HEENT: NC/AT Neck: Supple, No JVD Lungs: other (no acute respiratory distress) Cardiovascular: RRR Abdomen: soft, non-tender, non-distended Extremities: ecchymosis Neurological: no change, unable to follow command (confused, demented) Internal Medicine Assmt/Plan - Assessment Assessment: Insomnia. Acute psychosis. Dementia. Schizoaffective disorder. H/o CAD. H/o Stroke. H/o Hyperlipidemia. - Plan Plan: Continuation of care. Monitor labs and vitals. Monitor diet/nutritional support. Psych management per Psych. Continue present meds as directed. Continue current treatment plan as ordered. Nutritional Asmnt/Malnutr-PDOC - Dietary Evaluation Malnutrition Findings (Please click <Entered> for more info): Nutritional Asmnt/Malnutrition Start: 08/01/19 15: 45 Text: Status: Complete Freq: Protocol: Document 08/01/19 15:55 YUN (Rec: 08/01/19 16:00 YUN [email or web address]) Nutritional Asmnt/Malnutrition Patient General Information Nutritional Screening Low Risk Diagnosis Psychosis Pertinent Medical Hx/Surgical Hx TIA, CAD, Hyperlipidemia, Schizoaffective Disorder, Bipolar Type, Dementia Subjective Information Pt is a 68-year-old male admitted on 07/26 on a 5150. Pt is eating 75-100% of meals Per Meal/Nutrition Activity Record. Dietary is currently providing an estimated 2370 kcals and 107gm Pro, per Pt intake, this is providing an estimated 2070 kcals and 94gm Pro to meet 100% kcal and 100+ % Pro needs- adequate to meet estimated nutritional needs. 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 Open sites have 100% red tissue. No odor, no drainage. Madiha-wound intact. Surrounding tissue has dark discolored flaky skin and scar tissue. Moisture barrier cream nearly covered all of the non-intact areas. Entire site measures 13.0 cm x 15.0 cm (includes dark discolored flaky skin, with a few sporadic non-intact sites within the dark discolored flaky skin). Spoke with pt Nurse, Kerrie, concerning wound . Suggested either a multivitamin or Lele to support wound healing, Kerrie stated he would speak with MD concerning a Multivitamin as he did not believe the pt would drink the Lele. HT: 57 WT: 155 LB (70.45 kg) BMI: 24.28 (Normal) GI: WNL, Soft, Non-tender BM: 08/01 x1 I/O: 920/Not Noted Skin: Area of Concern, CELI Leg abrasions with reddening, LT hand bruise, Sacral/Buttock open wound Alfredo: 16 Diet Order: Pureed, ANIKA Estimated Energy Needs: ( Geriatric, CBW) 9835-8327 kcals (25-30 kcals/ kg) 70-85g Pro (1.0-1.2 g/kg) 7424-3408 ml (25-30 ml/kg) Current Diet Order/ Nutrition Support Pureed, ANIKA Pertinent Medications Maalox (PRN), Lipitor, Colace, MOM (PRN) Pertinent Labs No Labs To Report. Nutritional Hx/Data Height 1.7 m Height (Calculated Centimeters) 170.2 Current Weight (lbs) 70.307 kg Weight (Calculated Kilograms) 70.3 Weight (Calculated Grams) 64054.8 [place] Body Weight 148 LB(67.27 kg) % [place] Body Weight 105 Body Mass Index (BMI) 24.3 Weight Status Approriate GI Symptoms GI Symptoms None Last BM 103 x1 Skin Integrity/Comment: Skin: Area of Concern, CELI Leg abrasions with reddening, LT hand bruise, Sacral/Buttock open wound Alfredo: 16 Current %PO Good (75-100%) Estimated Nutritional Goals BEE in Kcals: Using Current wt Calories/Kcals/Kg 25-30 Kcals Calculated 9186-6257 Protein: Using Current wt Protein g/k.0-1.2 Protein Calculated 70-85 Fluid: ml 6477-6896 ml (25-30 ml/kg) Nutritional Problem 1. Problem Problem Increased vitamin/mineral utilization Etiology r/t wound healing Signs/Symptoms: aeb CELI Leg abrasions with reddening, LT hand bruise, Sacral/Buttock open wound. Intervention/Recommendation Comments 1. Continue with Pureed, ANIKA diet as ordered. 2. Recommend addition of multivitamin to support wound healing and skin integrity. Expected Outcomes/Goals Expected Outcomes/Goals 1. PO intake to continue to meet >75% of nutritional needs . 2. Monitor PO intake, wt, nutrition related labs, and skin integrity to trend WNL. 3. F/U as moderate risk in 3-5 days, 08/04-08/06.
--- NOTE | 2019-08-04 17:19 | Internal Medicine Prog Note ---
Internal Medicine Subjective - Subjective Patient is:: awake, asleep, arousable, aren chair, agitated, confused Patient Complaints of:: other (Anxiety.) Per staff patient has:: no adverse event, no episodes of fall, agitated, confused Internal Medicine Objective - Physical Exam Vitals and I&O: Vital Signs Temp 98.4 F 08/04/19 14:00 Pulse 76 08/04/19 14:00 Resp 20 08/04/19 14:00 BP 118/64 08/04/19 14:00 Pulse Ox 98 08/04/19 14:00 Intake & Output 08/03/19 08/04/19 08/04/19 18:59 06:59 18:59 Intake Total 1200 120 Balance 1200 120 Intake: Oral 1200 120 Other: # Voids 3 # Bowel Movements 1 Active Medications: Current Medications Acetaminophen (Tylenol) 650 mg PO Q4H PRN PRN Reason: Mild Pain/Headache/T above 101 Stop: 09/24/19 14:21 Last Admin: 08/03/19 20:48 Dose: 650 mg Al Hydrox/Mg Hydrox/Simethicone (Maalox) 30 ml PO Q4HR PRN PRN Reason: FPR HEARTBURN Stop: 09/25/19 09:09 Aspirin (Aspirin) 325 mg PO DAILY DANNY Stop: 09/25/19 08:59 Last Admin: 08/04/19 08:45 Dose: 325 mg Atorvastatin Calcium (Lipitor) 80 mg PO HS DANNY; Protocol Stop: 09/25/19 20:59 Last Admin: 08/03/19 20:48 Dose: 80 mg Calamine/Phenol (Calmoseptine) 1 appl TP QID PRN PRN Reason: Skin Irritation Stop: 09/29/19 17:06 Last Admin: 08/02/19 00:43 Dose: 1 appl Clopidogrel Bisulfate (Plavix) 75 mg PO DAILY [facility] Stop: 09/25/19 08:59 Last Admin: 08/04/19 08:44 Dose: 75 mg Divalproex Sodium (Depakote Sprinkle) 250 mg PO HS DANNY; Protocol Stop: 09/29/19 20:59 Last Admin: 08/03/19 20:48 Dose: 250 mg Divalproex Sodium (Depakote Sprinkle) 250 mg PO QPM DANNY; Protocol Stop: 09/29/19 16:59 Last Admin: 08/03/19 17:25 Dose: 250 mg Docusate Sodium (Colace) 100 mg PO BID DANNY Stop: 09/25/19 16:59 Last Admin: 08/04/19 08:44 Dose: 100 mg Lorazepam (Ativan) 0.5 mg PO Q4H PRN; Protocol PRN Reason: Anxiety/Agitation Stop: 09/24/19 14:21 Last Admin: 08/03/19 20:48 Dose: 0.5 mg Magnesium Hydroxide (Milk Of Magnesia) 30 ml PO HS PRN PRN Reason: Constipation Stop: 09/24/19 14:21 Quetiapine Fumarate (Seroquel) 50 mg PO BID DANNY Stop: 10/03/19 08:59 Last Admin: 08/04/19 08:45 Dose: 50 mg Quetiapine Fumarate (Seroquel) 100 mg PO HS DANNY; Protocol Stop: 10/03/19 20:59 Zolpidem Tartrate (Ambien) 5 mg PO HS PRN PRN Reason: Insomnia Stop: 09/24/19 14:21 Last Admin: 08/01/19 20:05 Dose: 5 mg General: weak, alert, disheveled HEENT: NC/AT Neck: Supple, No JVD Lungs: other (no acute respiratory distress) Cardiovascular: RRR Abdomen: soft, non-tender, non-distended Extremities: ecchymosis Neurological: no change, unable to follow command (confused, demented) Internal Medicine Assmt/Plan - Assessment Assessment: Dementia Schizoaffective disorder Acute Psychosis Insomnia Hx CAD Hx [place] Hyperlipidemia - Plan Plan: Continue current treatment plan. Monitor Labs.Continue current medications Continue to monitor VS Monitor Diet/Nutritional support. Psych management per Psychiatry. Pain Management. Wound Care consult - pending - ordered yesterday PT/OT prn Safety precaution, Fall precaution, frequent nursing round. Supportive care. Continue collaborating with consulting specialists, case management and nursing team. Nutritional Asmnt/Malnutr-PDOC - Dietary Evaluation Malnutrition Findings (Please click <Entered> for more info): Nutritional Asmnt/Malnutrition Start: 08/01/19 15: 45 Text: Status: Complete Freq: Protocol: Document 08/01/19 15:55 YUN (Rec: 08/01/19 16:00 YUN [email or web address]) Nutritional Asmnt/Malnutrition Patient General Information Nutritional Screening Low Risk Diagnosis Psychosis Pertinent Medical Hx/Surgical Hx TIA, CAD, Hyperlipidemia, Schizoaffective Disorder, Bipolar Type, Dementia Subjective Information Pt is a 68-year-old male admitted on 07/26 on a 5150. Pt is eating 75-100% of meals Per Meal/Nutrition Activity Record. Dietary is currently providing an estimated 2370 kcals and 107gm Pro, per Pt intake, this is providing an estimated 2070 kcals and 94gm Pro to meet 100% kcal and 100+ % Pro needs- adequate to meet estimated nutritional needs. 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 Open sites have 100% red tissue. No odor, no drainage. Madiha-wound intact. Surrounding tissue has dark discolored flaky skin and scar tissue. Moisture barrier cream nearly covered all of the non-intact areas. Entire site measures 13.0 cm x 15.0 cm (includes dark discolored flaky skin, with a few sporadic non-intact sites within the dark discolored flaky skin). Spoke with pt Nurse, Kerrie, concerning wound . Suggested either a multivitamin or Lele to support wound healing, Kerrie stated he would speak with MD concerning a Multivitamin as he did not believe the pt would drink the Lele. HT: 57 WT: 155 LB (70.45 kg) BMI: 24.28 (Normal) GI: WNL, Soft, Non-tender BM: 08/01 x1 I/O: 920/Not Noted Skin: Area of Concern, CELI Leg abrasions with reddening, LT hand bruise, Sacral/Buttock open wound Alfredo: 16 Diet Order: Pureed, ANIKA Estimated Energy Needs: ( Geriatric, CBW) 1512-9872 kcals (25-30 kcals/ kg) 70-85g Pro (1.0-1.2 g/kg) 6923-2135 ml (25-30 ml/kg) Current Diet Order/ Nutrition Support Pureed, ANIKA Pertinent Medications Maalox (PRN), Lipitor, Colace, MOM (PRN) Pertinent Labs No Labs To Report. Nutritional Hx/Data Height 5 ft 7 in Height (Calculated Centimeters) 170.2 Current Weight (lbs) 155 lb Weight (Calculated Kilograms) 70.3 Weight (Calculated Grams) 96030.8 [place] Body Weight 148 LB(67.27 kg) % [place] Body Weight 105 Body Mass Index (BMI) 24.3 Weight Status Approriate GI Symptoms GI Symptoms None Last BM 103 x1 Skin Integrity/Comment: Skin: Area of Concern, CELI Leg abrasions with reddening, LT hand bruise, Sacral/Buttock open wound Alfredo: 16 Current %PO Good (75-100%) Estimated Nutritional Goals BEE in Kcals: Using Current wt Calories/Kcals/Kg 25-30 Kcals Calculated 6319-3738 Protein: Using Current wt Protein g/k.0-1.2 Protein Calculated 70-85 Fluid: ml 8268-7867 ml (25-30 ml/kg) Nutritional Problem 1. Problem Problem Increased vitamin/mineral utilization Etiology r/t wound healing Signs/Symptoms: aeb CELI Leg abrasions with reddening, LT hand bruise, Sacral/Buttock open wound. Intervention/Recommendation Comments 1. Continue with Pureed, ANIKA diet as ordered. 2. Recommend addition of multivitamin to support wound healing and skin integrity. Expected Outcomes/Goals Expected Outcomes/Goals 1. PO intake to continue to meet >75% of nutritional needs . 2. Monitor PO intake, wt, nutrition related labs, and skin integrity to trend WNL. 3. F/U as moderate risk in 3-5 days, 08/04-08/06.
--- NOTE | 2019-08-05 07:55 | Progress Notes ---
DATE: 08/04/2019 Chart reviewed and the patient interviewed. Also discussed the patient's condition with the staff and reviewed records and labs. The patient is still in angry and irritable mood. The patient also still hypertalkative and argumentative and actively responding and hallucinating and talking to imaginary objects. The patient also is talking to himself and nonstop talking with difficulty redirecting. Otherwise, the patient is compliant with taking his medication and Seroquel was changed to 50 mg twice a day and 100 mg at bedtime. Hopefully, that can help him to sleep better at night. At the same time, we will continue monitoring behavior closely and we will continue to follow up. [facility]# [id number]
--- NOTE | 2019-08-05 10:47 | Internal Medicine Prog Note ---
Internal Medicine Subjective - Subjective Service Date: 08/05/19 Patient seen and examined:: with staff Patient is:: awake, asleep, arousable, aren chair, agitated, confused Patient Complaints of:: other (Anxiety.) Per staff patient has:: no adverse event, no episodes of fall, agitated, confused Internal Medicine Objective - Physical Exam Vitals and I&O: Vital Signs Temp 97.6 F 08/05/19 06:28 Pulse 71 08/05/19 06:28 Resp 20 08/05/19 06:28 BP 124/74 08/05/19 06:28 Pulse Ox 98 08/05/19 06:28 Intake & Output 08/04/19 08/05/19 08/05/19 18:59 06:59 18:59 Intake Total 600 240 Balance 600 240 Intake: Oral 600 240 Other: # Voids 3 2 # Bowel Movements 0 0 Active Medications: Current Medications Acetaminophen (Tylenol) 650 mg PO Q4H PRN PRN Reason: Mild Pain/Headache/T above 101 Stop: 09/24/19 14:21 Last Admin: 08/03/19 20:48 Dose: 650 mg Al Hydrox/Mg Hydrox/Simethicone (Maalox) 30 ml PO Q4HR PRN PRN Reason: FPR HEARTBURN Stop: 09/25/19 09:09 Aspirin (Aspirin) 325 mg PO DAILY [facility] Stop: 09/25/19 08:59 Last Admin: 08/05/19 08:24 Dose: 325 mg Atorvastatin Calcium (Lipitor) 80 mg PO HS DANNY; Protocol Stop: 09/25/19 20:59 Last Admin: 08/04/19 20:59 Dose: 80 mg Calamine/Phenol (Calmoseptine) 1 appl TP QID PRN PRN Reason: Skin Irritation Stop: 09/29/19 17:06 Last Admin: 08/02/19 00:43 Dose: 1 appl Clopidogrel Bisulfate (Plavix) 75 mg PO DAILY DANNY Stop: 09/25/19 08:59 Last Admin: 08/05/19 08:24 Dose: 75 mg Divalproex Sodium (Depakote Sprinkle) 250 mg PO HS DANNY; Protocol Stop: 09/29/19 20:59 Last Admin: 08/04/19 21:00 Dose: 250 mg Divalproex Sodium (Depakote Sprinkle) 250 mg PO QPM DANNY; Protocol Stop: 09/29/19 16:59 Last Admin: 08/04/19 17:32 Dose: 250 mg Docusate Sodium (Colace) 100 mg PO BID DANNY Stop: 09/25/19 16:59 Last Admin: 08/04/19 17:32 Dose: 100 mg Lorazepam (Ativan) 0.5 mg PO Q4H PRN; Protocol PRN Reason: Anxiety/Agitation Stop: 09/24/19 14:21 Last Admin: 08/03/19 20:48 Dose: 0.5 mg Magnesium Hydroxide (Milk Of Magnesia) 30 ml PO HS PRN PRN Reason: Constipation Stop: 09/24/19 14:21 Quetiapine Fumarate (Seroquel) 50 mg PO BID DANNY Stop: 10/03/19 08:59 Last Admin: 08/05/19 08:24 Dose: 50 mg Quetiapine Fumarate 100 mg/ (Quetiapine Fumarate 25 mg) 125 mg PO HS DANNY Stop: 10/04/19 20:59 Zolpidem Tartrate (Ambien) 5 mg PO HS PRN PRN Reason: Insomnia Stop: 09/24/19 14:21 Last Admin: 08/01/19 20:05 Dose: 5 mg Physical Exam: Patient is very confused and talking to himself, hallucinating. General: weak, alert, disheveled HEENT: NC/AT Neck: Supple, No JVD Lungs: other (no acute respiratory distress) Cardiovascular: RRR Abdomen: soft, non-tender, non-distended Extremities: ecchymosis Neurological: no change, unable to follow command (confused, demented) Internal Medicine Assmt/Plan - Assessment Assessment: Insomnia. Acute psychosis. Dementia. Schizoaffective disorder. H/o CAD. H/o Stroke. H/o Hyperlipidemia. - Plan Plan: Continuation of care. Monitor labs and vitals. Monitor diet/nutritional support. Psych management per Psych. Continue present meds as directed. Continue current treatment plan as ordered. Nutritional Asmnt/Malnutr-PDOC - Dietary Evaluation Malnutrition Findings (Please click <Entered> for more info): Nutritional Asmnt/Malnutrition Start: 08/01/19 15: 45 Text: Status: Complete Freq: Protocol: Document 08/01/19 15:55 [email or web address] (Rec: 08/01/19 16:00 YUN [email or web address]) Nutritional Asmnt/Malnutrition Patient General Information Nutritional Screening Low Risk Diagnosis Psychosis Pertinent Medical Hx/Surgical Hx TIA, CAD, Hyperlipidemia, Schizoaffective Disorder, Bipolar Type, Dementia Subjective Information Pt is a 68-year-old male admitted on 07/26 on a 5150. Pt is eating 75-100% of meals Per Meal/Nutrition Activity Record. Dietary is currently providing an estimated 2370 kcals and 107gm Pro, per Pt intake, this is providing an estimated 2070 kcals and 94gm Pro to meet 100% kcal and 100+ % Pro needs- adequate to meet estimated nutritional needs. 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 Open sites have 100% red tissue. No odor, no drainage. Madiha-wound intact. Surrounding tissue has dark discolored flaky skin and scar tissue. Moisture barrier cream nearly covered all of the non-intact areas. Entire site measures 13.0 cm x 15.0 cm (includes dark discolored flaky skin, with a few sporadic non-intact sites within the dark discolored flaky skin). Spoke with pt Nurse, Kerrie, concerning wound . Suggested either a multivitamin or Lele to support wound healing, Kerrie stated he would speak with MD concerning a Multivitamin as he did not believe the pt would drink the Lele. HT: 57 WT: 155 LB (70.45 kg) BMI: 24.28 (Normal) GI: WNL, Soft, Non-tender BM: 08/01 x1 I/O: 920/Not Noted Skin: Area of Concern, CELI Leg abrasions with reddening, LT hand bruise, Sacral/Buttock open wound Alfredo: 16 Diet Order: Pureed, ANIKA Estimated Energy Needs: ( Geriatric, CBW) 7386-5652 kcals (25-30 kcals/ kg) 70-85g Pro (1.0-1.2 g/kg) 0224-6888 ml (25-30 ml/kg) Current Diet Order/ Nutrition Support Pureed, ANIKA Pertinent Medications Maalox (PRN), Lipitor, Colace, MOM (PRN) Pertinent Labs No Labs To Report. Nutritional Hx/Data Height 1.7 m Height (Calculated Centimeters) 170.2 Current Weight (lbs) 70.307 kg Weight (Calculated Kilograms) 70.3 Weight (Calculated Grams) 49082.8 [place] Body Weight 148 LB(67.27 kg) % [place] Body Weight 105 Body Mass Index (BMI) 24.3 Weight Status Approriate GI Symptoms GI Symptoms None Last BM 10/3 x1 Skin Integrity/Comment: Skin: Area of Concern, CELI Leg abrasions with reddening, LT hand bruise, Sacral/Buttock open wound Alfredo: 16 Current %PO Good (75-100%) Estimated Nutritional Goals BEE in Kcals: Using Current wt Calories/Kcals/Kg 25-30 Kcals Calculated 0920-0950 Protein: Using Current wt Protein g/k.0-1.2 Protein Calculated 70-85 Fluid: ml 0919-7366 ml (25-30 ml/kg) Nutritional Problem 1. Problem Problem Increased vitamin/mineral utilization Etiology r/t wound healing Signs/Symptoms: aeb CELI Leg abrasions with reddening, LT hand bruise, Sacral/Buttock open wound. Intervention/Recommendation Comments 1. Continue with Pureed, ANIKA diet as ordered. 2. Recommend addition of multivitamin to support wound healing and skin integrity. Expected Outcomes/Goals Expected Outcomes/Goals 1. PO intake to continue to meet >75% of nutritional needs . 2. Monitor PO intake, wt, nutrition related labs, and skin integrity to trend WNL. 3. F/U as moderate risk in 3-5 days, 08/04-08/06.
[2019-08-05] MEDS: Menthol/Zinc Oxide Oint 113gm Tube TP PRN (12:10)
--- NOTE | 2019-08-05 21:28 | Progress Notes ---
DATE: SUBJECTIVE: Chart reviewed and the patient interviewed. Also discussed the patient's condition with the staff and reviewed records and labs. The patient continued to be in irritable and angry mood. The patient also is still restless and easily agitated and easily irritable. The patient also seems to be preoccupied. The patient also has severe mood swings. Otherwise, the patient is compliant with taking his medications with no side effects of Depakote or Seroquel. ASSESSMENT: The patient is still confused and agitated. TREATMENT PLAN: Continue to monitor behavior and condition closely. Also, continue Seroquel 50 mg twice a day and 100 mg at bedtime and continue to work on behavior modification and followup. [facility]# [id number]
[2019-08-06] MEDS: Menthol/Zinc Oxide Oint 113gm Tube TP PRN ×2 (06:00→21:30)
--- NOTE | 2019-08-06 14:27 | Internal Medicine Prog Note ---
Internal Medicine Subjective - Subjective Service Date: 08/06/19 Patient seen and examined:: with staff Patient is:: awake, asleep, arousable, aren chair, agitated, confused Patient Complaints of:: other (Anxiety.) Per staff patient has:: no adverse event, no episodes of fall, agitated, confused Internal Medicine Objective - Physical Exam Vitals and I&O: Vital Signs Temp 97.8 F 08/06/19 06:48 Pulse 103 08/06/19 06:48 Resp 18 08/06/19 08:00 BP 113/79 08/06/19 06:48 Pulse Ox 96 08/06/19 06:48 Intake & Output 08/05/19 08/06/19 08/06/19 18:59 06:59 18:59 Intake Total 960 60 Balance 960 60 Intake: Oral 960 60 Other: # Voids 3 3 # Bowel Movements 1 0 Active Medications: Current Medications Acetaminophen (Tylenol) 650 mg PO Q4H PRN PRN Reason: Mild Pain/Headache/T above 101 Stop: 09/24/19 14:21 Last Admin: 08/03/19 20:48 Dose: 650 mg Al Hydrox/Mg Hydrox/Simethicone (Maalox) 30 ml PO Q4HR PRN PRN Reason: FPR HEARTBURN Stop: 09/25/19 09:09 Aspirin (Aspirin) 325 mg PO DAILY [facility] Stop: 09/25/19 08:59 Last Admin: 08/06/19 08:55 Dose: 325 mg Atorvastatin Calcium (Lipitor) 80 mg PO HS DANNY; Protocol Stop: 09/25/19 20:59 Last Admin: 08/05/19 21:04 Dose: 80 mg Calamine/Phenol (Calmoseptine) 1 appl TP QID PRN PRN Reason: Skin Irritation Stop: 09/29/19 17:06 Last Admin: 08/06/19 06:00 Dose: 1 appl Clopidogrel Bisulfate (Plavix) 75 mg PO DAILY [facility] Stop: 09/25/19 08:59 Last Admin: 08/06/19 08:55 Dose: 75 mg Divalproex Sodium (Depakote Sprinkle) 250 mg PO HS DANNY; Protocol Stop: 09/29/19 20:59 Last Admin: 08/05/19 21:04 Dose: 250 mg Divalproex Sodium (Depakote Sprinkle) 250 mg PO QPM DANNY; Protocol Stop: 09/29/19 16:59 Last Admin: 08/05/19 17:04 Dose: 250 mg Docusate Sodium (Colace) 100 mg PO BID DANNY Stop: 09/25/19 16:59 Last Admin: 08/06/19 08:55 Dose: 100 mg Lorazepam (Ativan) 0.5 mg PO Q4H PRN; Protocol PRN Reason: Anxiety/Agitation Stop: 09/24/19 14:21 Last Admin: 08/03/19 20:48 Dose: 0.5 mg Magnesium Hydroxide (Milk Of Magnesia) 30 ml PO HS PRN PRN Reason: Constipation Stop: 09/24/19 14:21 Quetiapine Fumarate (Seroquel) 50 mg PO BID DANNY Stop: 10/03/19 08:59 Last Admin: 08/06/19 08:55 Dose: 50 mg Quetiapine Fumarate 100 mg/ (Quetiapine Fumarate 50 mg) 150 mg PO HS DANNY Stop: 10/05/19 20:59 Zolpidem Tartrate (Ambien) 5 mg PO HS PRN PRN Reason: Insomnia Stop: 09/24/19 14:21 Last Admin: 08/06/19 00:38 Dose: 5 mg Physical Exam: Patient has difficulty sleeping and is very weak. General: weak, alert, disheveled HEENT: NC/AT Neck: Supple, No JVD Lungs: other (no acute respiratory distress) Cardiovascular: RRR Abdomen: soft, non-tender, non-distended Extremities: ecchymosis Neurological: no change, unable to follow command (confused, demented) Internal Medicine Assmt/Plan - Assessment Assessment: Insomnia. Acute psychosis. Dementia. Schizoaffective disorder. H/o CAD. H/o Stroke. H/o Hyperlipidemia. - Plan Plan: Continuation of care. Monitor labs and vitals. Monitor diet/nutritional support. Psych management per Psych. Continue present meds as directed. Continue current treatment plan as ordered. Nutritional Asmnt/Malnutr-PDOC - Dietary Evaluation Malnutrition Findings (Please click <Entered> for more info): Nutritional Asmnt/Malnutrition Start: 08/01/19 15: 45 Text: Status: Complete Freq: Protocol: Document 08/01/19 15:55 JEXAMUS (Rec: 08/01/19 16:00 JEXAMUS [email or web address]) Nutritional Asmnt/Malnutrition Patient General Information Nutritional Screening Low Risk Diagnosis Psychosis Pertinent Medical Hx/Surgical Hx TIA, CAD, Hyperlipidemia, Schizoaffective Disorder, Bipolar Type, Dementia Subjective Information Pt is a 68-year-old male admitted on 07/26 on a 5150. Pt is eating 75-100% of meals Per Meal/Nutrition Activity Record. Dietary is currently providing an estimated 2370 kcals and 107gm Pro, per Pt intake, this is providing an estimated 2070 kcals and 94gm Pro to meet 100% kcal and 100+ % Pro needs- adequate to meet estimated nutritional needs. 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 Open sites have 100% red tissue. No odor, no drainage. Madiha-wound intact. Surrounding tissue has dark discolored flaky skin and scar tissue. Moisture barrier cream nearly covered all of the non-intact areas. Entire site measures 13.0 cm x 15.0 cm (includes dark discolored flaky skin, with a few sporadic non-intact sites within the dark discolored flaky skin). Spoke with pt Nurse, Kerrie, concerning wound . Suggested either a multivitamin or Lele to support wound healing, Kerrie stated he would speak with MD concerning a Multivitamin as he did not believe the pt would drink the Lele. HT: 57 WT: 155 LB (70.45 kg) BMI: 24.28 (Normal) GI: WNL, Soft, Non-tender BM: 08/01 x1 I/O: 920/Not Noted Skin: Area of Concern, CELI Leg abrasions with reddening, LT hand bruise, Sacral/Buttock open wound Alfredo: 16 Diet Order: Pureed, ANIKA Estimated Energy Needs: ( Geriatric, CBW) 9325-7695 kcals (25-30 kcals/ kg) 70-85g Pro (1.0-1.2 g/kg) 2306-1167 ml (25-30 ml/kg) Current Diet Order/ Nutrition Support Pureed, ANIKA Pertinent Medications Maalox (PRN), Lipitor, Colace, MOM (PRN) Pertinent Labs No Labs To Report. Nutritional Hx/Data Height 1.7 m Height (Calculated Centimeters) 170.2 Current Weight (lbs) 70.307 kg Weight (Calculated Kilograms) 70.3 Weight (Calculated Grams) 46373.8 [place] Body Weight 148 LB(67.27 kg) % [place] Body Weight 105 Body Mass Index (BMI) 24.3 Weight Status Approriate GI Symptoms GI Symptoms None Last BM 08/01 x1 Skin Integrity/Comment: Skin: Area of Concern, CELI Leg abrasions with reddening, LT hand bruise, Sacral/Buttock open wound Alfredo: 16 Current %PO Good (75-100%) Estimated Nutritional Goals BEE in Kcals: Using Current wt Calories/Kcals/Kg 25-30 Kcals Calculated 5877-1908 Protein: Using Current wt Protein g/k.0-1.2 Protein Calculated 70-85 Fluid: ml 6438-8126 ml (25-30 ml/kg) Nutritional Problem 1. Problem Problem Increased vitamin/mineral utilization Etiology r/t wound healing Signs/Symptoms: aeb CELI Leg abrasions with reddening, LT hand bruise, Sacral/Buttock open wound. Intervention/Recommendation Comments 1. Continue with Pureed, ANIKA diet as ordered. 2. Recommend addition of multivitamin to support wound healing and skin integrity. Expected Outcomes/Goals Expected Outcomes/Goals 1. PO intake to continue to meet >75% of nutritional needs . 2. Monitor PO intake, wt, nutrition related labs, and skin integrity to trend WNL. 3. F/U as moderate risk in 3-5 days, 08/04-08/06.
--- NOTE | 2019-08-06 15:54 | Internal Medicine Prog Note ---
Internal Medicine Subjective - Subjective Service Date: 08/06/19 Patient is:: awake, asleep, arousable, aren chair, agitated, confused Patient Complaints of:: other (Anxiety.) Per staff patient has:: no adverse event, no episodes of fall, agitated, confused Internal Medicine Objective - Physical Exam Vitals and I&O: Vital Signs Temp 98.2 F 08/06/19 14:53 Pulse 77 08/06/19 14:53 Resp 18 08/06/19 14:53 BP 101/60 08/06/19 14:53 Pulse Ox 97 08/06/19 14:53 Intake & Output 08/05/19 08/06/19 08/06/19 18:59 06:59 18:59 Intake Total 960 60 Balance 960 60 Intake: Oral 960 60 Other: # Voids 3 3 # Bowel Movements 1 0 Active Medications: Current Medications Acetaminophen (Tylenol) 650 mg PO Q4H PRN PRN Reason: Mild Pain/Headache/T above 101 Stop: 09/24/19 14:21 Last Admin: 08/03/19 20:48 Dose: 650 mg Al Hydrox/Mg Hydrox/Simethicone (Maalox) 30 ml PO Q4HR PRN PRN Reason: FPR HEARTBURN Stop: 09/25/19 09:09 Aspirin (Aspirin) 325 mg PO DAILY [facility]ANNY Stop: 09/25/19 08:59 Last Admin: 08/06/19 08:55 Dose: 325 mg Atorvastatin Calcium (Lipitor) 80 mg PO HS [facility]ANY[facility]; Protocol Stop: 09/25/19 20:59 Last Admin: 08/05/19 21:04 Dose: 80 mg Calamine/Phenol (Calmoseptine) 1 appl TP QID PRN PRN Reason: Skin Irritation Stop: 09/29/19 17:06 Last Admin: 08/06/19 06:00 Dose: 1 appl Clopidogrel Bisulfate (Plavix) 75 mg PO DAILY [facility]ANNY Stop: 09/25/19 08:59 Last Admin: 08/06/19 08:55 Dose: 75 mg Divalproex Sodium (Depakote Sprinkle) 250 mg PO HS DANNY; Protocol Stop: 09/29/19 20:59 Last Admin: 08/05/19 21:04 Dose: 250 mg Divalproex Sodium (Depakote Sprinkle) 250 mg PO QPM DANNY; Protocol Stop: 09/29/19 16:59 Last Admin: 08/05/19 17:04 Dose: 250 mg Docusate Sodium (Colace) 100 mg PO BID DANNY Stop: 09/25/19 16:59 Last Admin: 08/06/19 08:55 Dose: 100 mg Lorazepam (Ativan) 0.5 mg PO Q4H PRN; Protocol PRN Reason: Anxiety/Agitation Stop: 09/24/19 14:21 Last Admin: 08/03/19 20:48 Dose: 0.5 mg Magnesium Hydroxide (Milk Of Magnesia) 30 ml PO HS PRN PRN Reason: Constipation Stop: 09/24/19 14:21 Quetiapine Fumarate (Seroquel) 50 mg PO BID DANNY Stop: 10/03/19 08:59 Last Admin: 08/06/19 08:55 Dose: 50 mg Quetiapine Fumarate 100 mg/ (Quetiapine Fumarate 50 mg) 150 mg PO HS DANNY Stop: 10/05/19 20:59 Zolpidem Tartrate (Ambien) 5 mg PO HS PRN PRN Reason: Insomnia Stop: 09/24/19 14:21 Last Admin: 08/06/19 00:38 Dose: 5 mg General: weak, alert, disheveled HEENT: NC/AT Neck: Supple, No JVD Lungs: other (no acute respiratory distress) Cardiovascular: RRR Abdomen: soft, non-tender, non-distended Extremities: ecchymosis Neurological: no change, unable to follow command (confused, demented) Internal Medicine Assmt/Plan - Assessment Assessment: Dementia. Schizoaffective disorder. H/o CAD. H/o Stroke. H/o Hyperlipidemia. - Plan Plan: Continuation of care. Monitor labs and vitals. Monitor diet/nutritional support. Psych management per Psych. Continue present meds as directed. Continue current treatment plan as ordered. Nutritional Asmnt/Malnutr-PDOC - Dietary Evaluation Malnutrition Findings (Please click <Entered> for more info): Nutritional Asmnt/Malnutrition Start: 08/01/19 15: 45 Text: Status: Complete Freq: Protocol: Document 08/01/19 15:55 YUN (Rec: 08/01/19 16:00 YUN [email or web address]) Nutritional Asmnt/Malnutrition Patient General Information Nutritional Screening Low Risk Diagnosis Psychosis Pertinent Medical Hx/Surgical Hx TIA, CAD, Hyperlipidemia, Schizoaffective Disorder, Bipolar Type, Dementia Subjective Information Pt is a 68-year-old male admitted on 07/26 on a 5150. Pt is eating 75-100% of meals Per Meal/Nutrition Activity Record. Dietary is currently providing an estimated 2370 kcals and 107gm Pro, per Pt intake, this is providing an estimated 2070 kcals and 94gm Pro to meet 100% kcal and 100+ % Pro needs- adequate to meet estimated nutritional needs. 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 Open sites have 100% red tissue. No odor, no drainage. Madiha-wound intact. Surrounding tissue has dark discolored flaky skin and scar tissue. Moisture barrier cream nearly covered all of the non-intact areas. Entire site measures 13.0 cm x 15.0 cm (includes dark discolored flaky skin, with a few sporadic non-intact sites within the dark discolored flaky skin). Spoke with pt Nurse, Kerrie, concerning wound . Suggested either a multivitamin or Lele to support wound healing, Kerrie stated he would speak with MD concerning a Multivitamin as he did not believe the pt would drink the Leel. HT: 57 WT: 155 LB (70.45 kg) BMI: 24.28 (Normal) GI: WNL, Soft, Non-tender BM: 08/01 x1 I/O: 920/Not Noted Skin: Area of Concern, CELI Leg abrasions with reddening, LT hand bruise, Sacral/Buttock open wound Alfredo: 16 Diet Order: Pureed, ANIKA Estimated Energy Needs: ( Geriatric, CBW) 7550-9899 kcals (25-30 kcals/ kg) 70-85g Pro (1.0-1.2 g/kg) 7713-6705 ml (25-30 ml/kg) Current Diet Order/ Nutrition Support Pureed, ANIKA Pertinent Medications Maalox (PRN), Lipitor, Colace, MOM (PRN) Pertinent Labs No Labs To Report. Nutritional Hx/Data Height 5 ft 7 in Height (Calculated Centimeters) 170.2 Current Weight (lbs) 155 lb Weight (Calculated Kilograms) 70.3 Weight (Calculated Grams) 89664.8 [place] Body Weight 148 LB(67.27 kg) % [place] Body Weight 105 Body Mass Index (BMI) 24.3 Weight Status Approriate GI Symptoms GI Symptoms None Last BM 08/01 x1 Skin Integrity/Comment: Skin: Area of Concern, CELI Leg abrasions with reddening, LT hand bruise, Sacral/Buttock open wound Alfredo: 16 Current %PO Good (75-100%) Estimated Nutritional Goals BEE in Kcals: Using Current wt Calories/Kcals/Kg 25-30 Kcals Calculated 9054-3251 Protein: Using Current wt Protein g/k.0-1.2 Protein Calculated 70-85 Fluid: ml 5011-7671 ml (25-30 ml/kg) Nutritional Problem 1. Problem Problem Increased vitamin/mineral utilization Etiology r/t wound healing Signs/Symptoms: aeb CELI Leg abrasions with reddening, LT hand bruise, Sacral/Buttock open wound. Intervention/Recommendation Comments 1. Continue with Pureed, ANIKA diet as ordered. 2. Recommend addition of multivitamin to support wound healing and skin integrity. Expected Outcomes/Goals Expected Outcomes/Goals 1. PO intake to continue to meet >75% of nutritional needs . 2. Monitor PO intake, wt, nutrition related labs, and skin integrity to trend WNL. 3. F/U as moderate risk in 3-5 days, 08/04-08/06.
--- NOTE | 2019-08-06 23:14 | Progress Notes ---
DATE: 08/06/2019 SUBJECTIVE: Chart reviewed and the patient interviewed. Also discussed the patient's condition with the staff and reviewed records and labs. The patient is still angry and in irritable mood. The patient woke up in the middle of the night, tried to get off the bed and yelling and screaming and irritable and difficulty following directions. The patient is still easily agitated and confused, not cooperative with the staff. Also had episodes of yelling and screaming. Otherwise, no side effects of medications. ASSESSMENT: The patient is still irritable and agitated and needs close monitoring. TREATMENT PLAN: Continue to monitor behavior and condition closely. Also, continue to work on his anger and inability to follow directions. At the same time, we will increase his Seroquel to 50 mg twice a day and 150 mg at bedtime and we will continue to follow up. [facility]# [id number]
--- NOTE | 2019-08-07 13:12 | Internal Medicine Prog Note ---
Internal Medicine Subjective - Subjective Service Date: 08/07/19 Patient seen and examined:: with staff Patient is:: awake, asleep, arousable, aren chair, agitated, confused Patient Complaints of:: other (Anxiety.) Per staff patient has:: no adverse event, no episodes of fall, agitated, confused Internal Medicine Objective - Physical Exam Vitals and I&O: Vital Signs Temp 97.4 F 08/07/19 06:09 Pulse 65 08/07/19 06:09 Resp 19 08/07/19 06:09 BP 133/80 08/07/19 06:09 Pulse Ox 96 08/07/19 06:09 Intake & Output 08/06/19 08/07/19 08/07/19 18:59 06:59 18:59 Intake Total 700 180 Balance 700 180 Intake: Oral 700 180 Other: # Voids 3 2 # Bowel Movements 0 0 Active Medications: Current Medications Acetaminophen (Tylenol) 650 mg PO Q4H PRN PRN Reason: Mild Pain/Headache/T above 101 Stop: 09/24/19 14:21 Last Admin: 08/03/19 20:48 Dose: 650 mg Al Hydrox/Mg Hydrox/Simethicone (Maalox) 30 ml PO Q4HR PRN PRN Reason: FPR HEARTBURN Stop: 09/25/19 09:09 Aspirin (Aspirin) 325 mg PO DAILY [facility] Stop: 09/25/19 08:59 Last Admin: 08/07/19 09:23 Dose: Not Given Atorvastatin Calcium (Lipitor) 80 mg PO [facility]; Protocol Stop: 09/25/19 20:59 Last Admin: 08/06/19 20:47 Dose: 80 mg Calamine/Phenol (Calmoseptine) 1 appl TP QID PRN PRN Reason: Skin Irritation Stop: 09/29/19 17:06 Last Admin: 08/06/19 21:30 Dose: 1 appl Clopidogrel Bisulfate (Plavix) 75 mg PO DAILY [facility] Stop: 09/25/19 08:59 Last Admin: 08/07/19 09:23 Dose: Not Given Divalproex Sodium (Depakote Sprinkle) 250 mg PO DAILY [facility]; Protocol Stop: 10/06/19 08:59 Last Admin: 08/07/19 09:22 Dose: Not Given Divalproex Sodium (Depakote Sprinkle) 500 mg PO HS [facility]; Protocol Stop: 10/06/19 20:59 Docusate Sodium (Colace) 100 mg PO BID DANNY Stop: 09/25/19 16:59 Last Admin: 08/07/19 09:23 Dose: Not Given Lorazepam (Ativan) 0.5 mg PO Q4H PRN; Protocol PRN Reason: Anxiety/Agitation Stop: 09/24/19 14:21 Last Admin: 08/06/19 20:47 Dose: 0.5 mg Magnesium Hydroxide (Milk Of Magnesia) 30 ml PO HS PRN PRN Reason: Constipation Stop: 09/24/19 14:21 Quetiapine Fumarate (Seroquel) 50 mg PO BID DANNY Stop: 10/03/19 08:59 Last Admin: 08/07/19 09:23 Dose: Not Given Quetiapine Fumarate 100 mg/ (Quetiapine Fumarate 50 mg) 150 mg PO HS DANNY Stop: 10/05/19 20:59 Last Admin: 08/06/19 20:49 Dose: 150 mg Zolpidem Tartrate (Ambien) 5 mg PO HS PRN PRN Reason: Insomnia Stop: 09/24/19 14:21 Last Admin: 08/06/19 21:30 Dose: 5 mg Physical Exam: Patient has weakness and is irritable. General: weak, alert, disheveled HEENT: NC/AT Neck: Supple, No JVD Lungs: other (no acute respiratory distress) Cardiovascular: RRR Abdomen: soft, non-tender, non-distended Extremities: ecchymosis Neurological: no change, unable to follow command (confused, demented) Internal Medicine Assmt/Plan - Assessment Assessment: Insomnia. Acute psychosis. Dementia. Schizoaffective disorder. H/o CAD. H/o Stroke. H/o Hyperlipidemia. - Plan Plan: Continuation of care. Monitor labs and vitals. Monitor diet/nutritional support. Psych management per Psych. Continue present meds as directed. Continue present care management. Nutritional Asmnt/Malnutr-PDOC - Dietary Evaluation Malnutrition Findings (Please click <Entered> for more info): Nutritional Asmnt/Malnutrition Start: 08/01/19 15: 45 Text: Status: Complete Freq: Protocol: Document 08/01/19 15:55 YUN (Rec: 08/01/19 16:00 YUN [email or web address]) Nutritional Asmnt/Malnutrition Patient General Information Nutritional Screening Low Risk Diagnosis Psychosis Pertinent Medical Hx/Surgical Hx TIA, CAD, Hyperlipidemia, Schizoaffective Disorder, Bipolar Type, Dementia Subjective Information Pt is a 68-year-old male admitted on 07/26 on a 5150. Pt is eating 75-100% of meals Per Meal/Nutrition Activity Record. Dietary is currently providing an estimated 2370 kcals and 107gm Pro, per Pt intake, this is providing an estimated 2070 kcals and 94gm Pro to meet 100% kcal and 100+ % Pro needs- adequate to meet estimated nutritional needs. 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 Open sites have 100% red tissue. No odor, no drainage. Madiha-wound intact. Surrounding tissue has dark discolored flaky skin and scar tissue. Moisture barrier cream nearly covered all of the non-intact areas. Entire site measures 13.0 cm x 15.0 cm (includes dark discolored flaky skin, with a few sporadic non-intact sites within the dark discolored flaky skin). Spoke with pt Nurse, Kerrie, concerning wound . Suggested either a multivitamin or Lele to support wound healing, Kerrie stated he would speak with MD concerning a Multivitamin as he did not believe the pt would drink the Lele. HT: 57 WT: 155 LB (70.45 kg) BMI: 24.28 (Normal) GI: WNL, Soft, Non-tender BM: 08/01 x1 I/O: 920/Not Noted Skin: Area of Concern, CELI Leg abrasions with reddening, LT hand bruise, Sacral/Buttock open wound Alfredo: 16 Diet Order: Pureed, ANIKA Estimated Energy Needs: ( Geriatric, CBW) 9276-6915 kcals (25-30 kcals/ kg) 70-85g Pro (1.0-1.2 g/kg) 3588-3616 ml (25-30 ml/kg) Current Diet Order/ Nutrition Support Pureed, ANIKA Pertinent Medications Maalox (PRN), Lipitor, Colace, MOM (PRN) Pertinent Labs No Labs To Report. Nutritional Hx/Data Height 1.7 m Height (Calculated Centimeters) 170.2 Current Weight (lbs) 70.307 kg Weight (Calculated Kilograms) 70.3 Weight (Calculated Grams) 27179.8 [place] Body Weight 148 LB(67.27 kg) % [place] Body Weight 105 Body Mass Index (BMI) 24.3 Weight Status Approriate GI Symptoms GI Symptoms None Last BM 10/3 x1 Skin Integrity/Comment: Skin: Area of Concern, CELI Leg abrasions with reddening, LT hand bruise, Sacral/Buttock open wound Alfredo: 16 Current %PO Good (75-100%) Estimated Nutritional Goals BEE in Kcals: Using Current wt Calories/Kcals/Kg 25-30 Kcals Calculated 8658-8408 Protein: Using Current wt Protein g/k.0-1.2 Protein Calculated 70-85 Fluid: ml 8150-5965 ml (25-30 ml/kg) Nutritional Problem 1. Problem Problem Increased vitamin/mineral utilization Etiology r/t wound healing Signs/Symptoms: aeb CELI Leg abrasions with reddening, LT hand bruise, Sacral/Buttock open wound. Intervention/Recommendation Comments 1. Continue with Pureed, ANIKA diet as ordered. 2. Recommend addition of multivitamin to support wound healing and skin integrity. Expected Outcomes/Goals Expected Outcomes/Goals 1. PO intake to continue to meet >75% of nutritional needs . 2. Monitor PO intake, wt, nutrition related labs, and skin integrity to trend WNL. 3. F/U as moderate risk in 3-5 days, 08/04-08/06.
--- NOTE | 2019-08-08 01:07 | Progress Notes ---
DATE: 08/07/2019 SUBJECTIVE: Chart reviewed and the patient interviewed. Also discussed the patient's condition with the staff and reviewed records and labs. The patient continues to have severe mood swings and he is still severely irritable and angry. The patient also is still preoccupied and uncooperative with the staff, especially during helping him with his ADLs. The patient also is guarded. The patient also is having episodes of anger and irritability. Otherwise, the patient is compliant with taking his medications with no side effects of medications. ASSESSMENT: The patient is still extremely agitated and is still severely irritable and needs close monitoring. TREATMENT PLAN: Continue to monitor behavior and condition closely. Also, we will increase Depakote to 250 mg in the morning and 500 mg at bedtime and we will monitor Depakote blood level. Also, continue Seroquel 50 mg twice a day and Ativan p.r.n. [facility]# [id number]
--- NOTE | 2019-08-08 18:27 | Internal Medicine Prog Note ---
Internal Medicine Subjective - Subjective Service Date: 08/08/19 Patient is:: awake, asleep, arousable, aren chair, agitated, confused Patient Complaints of:: other (Anxiety.) Per staff patient has:: no adverse event, no episodes of fall, agitated, confused Internal Medicine Objective - Physical Exam Vitals and I&O: Vital Signs Temp 97.2 F 08/08/19 14:00 Pulse 56 08/08/19 14:00 Resp 20 08/08/19 14:00 BP 94/75 08/08/19 14:00 Pulse Ox 96 08/08/19 14:00 Intake & Output 08/07/19 08/08/19 08/08/19 18:59 06:59 18:59 Intake Total 120 120 Balance 120 120 Intake: Oral 120 120 Other: # Voids 1 3 # Bowel Movements 0 Active Medications: Current Medications Acetaminophen (Tylenol) 650 mg PO Q4H PRN PRN Reason: Mild Pain/Headache/T above 101 Stop: 09/24/19 14:21 Last Admin: 08/03/19 20:48 Dose: 650 mg Al Hydrox/Mg Hydrox/Simethicone (Maalox) 30 ml PO Q4HR PRN PRN Reason: FPR HEARTBURN Stop: 09/25/19 09:09 Aspirin (Aspirin) 325 mg PO DAILY [facility] Stop: 09/25/19 08:59 Last Admin: 08/08/19 09:27 Dose: Not Given Atorvastatin Calcium (Lipitor) 80 mg PO HS [facility]AN[facility]; Protocol Stop: 09/25/19 20:59 Last Admin: 08/07/19 20:36 Dose: 80 mg Calamine/Phenol (Calmoseptine) 1 appl TP QID PRN PRN Reason: Skin Irritation Stop: 09/29/19 17:06 Last Admin: 08/06/19 21:30 Dose: 1 appl Clopidogrel Bisulfate (Plavix) 75 mg PO DAILY [facility] Stop: 09/25/19 08:59 Last Admin: 08/08/19 09:26 Dose: Not Given Divalproex Sodium (Depakote Sprinkle) 250 mg PO DAILY [facility]; Protocol Stop: 10/06/19 08:59 Last Admin: 08/08/19 09:27 Dose: Not Given Divalproex Sodium (Depakote Sprinkle) 500 mg PO HS [facility]; Protocol Stop: 10/06/19 20:59 Last Admin: 08/07/19 20:36 Dose: 500 mg Docusate Sodium (Colace) 100 mg PO BID [facility] Stop: 09/25/19 16:59 Last Admin: 08/08/19 16:18 Dose: Not Given Lorazepam (Ativan) 0.5 mg PO Q4H PRN; Protocol PRN Reason: Anxiety/Agitation Stop: 09/24/19 14:21 Last Admin: 08/06/19 20:47 Dose: 0.5 mg Magnesium Hydroxide (Milk Of Magnesia) 30 ml PO HS PRN PRN Reason: Constipation Stop: 09/24/19 14:21 Quetiapine Fumarate (Seroquel) 50 mg PO BID [facility]AN[facility] Stop: 10/03/19 08:59 Last Admin: 08/08/19 16:18 Dose: Not Given Quetiapine Fumarate 100 mg/ (Quetiapine Fumarate 50 mg) 150 mg PO HS [facility]ANNY Stop: 10/05/19 20:59 Last Admin: 08/07/19 20:35 Dose: 150 mg Zolpidem Tartrate (Ambien) 5 mg PO HS PRN PRN Reason: Insomnia Stop: 09/24/19 14:21 Last Admin: 08/06/19 21:30 Dose: 5 mg General: weak, alert, disheveled HEENT: NC/AT Neck: Supple, No JVD Lungs: other (no acute respiratory distress) Cardiovascular: RRR Abdomen: soft, non-tender, non-distended Extremities: ecchymosis Neurological: no change, unable to follow command (confused, demented) Internal Medicine Assmt/Plan - Assessment Assessment: Dementia. Schizoaffective disorder. H/o CAD. H/o Stroke. H/o Hyperlipidemia. - Plan Plan: Continuation of care. Monitor labs and vitals. Monitor diet/nutritional support. Psych management per Psych. Continue present meds as directed. Continue current treatment plan as ordered. Nutritional Asmnt/Malnutr-PDOC - Dietary Evaluation Malnutrition Findings (Please click <Entered> for more info): Nutritional Asmnt/Malnutrition Start: 08/01/19 15: 45 Text: Status: Complete Freq: Protocol: Document 08/01/19 15:55 YUN (Rec: 08/01/19 16:00 YUN [email or web address]) Nutritional Asmnt/Malnutrition Patient General Information Nutritional Screening Low Risk Diagnosis Psychosis Pertinent Medical Hx/Surgical Hx TIA, CAD, Hyperlipidemia, Schizoaffective Disorder, Bipolar Type, Dementia Subjective Information Pt is a 68-year-old male admitted on 07/26 on a 5150. Pt is eating 75-100% of meals Per Meal/Nutrition Activity Record. Dietary is currently providing an estimated 2370 kcals and 107gm Pro, per Pt intake, this is providing an estimated 2070 kcals and 94gm Pro to meet 100% kcal and 100+ % Pro needs- adequate to meet estimated nutritional needs. 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 Open sites have 100% red tissue. No odor, no drainage. Madiha-wound intact. Surrounding tissue has dark discolored flaky skin and scar tissue. Moisture barrier cream nearly covered all of the non-intact areas. Entire site measures 13.0 cm x 15.0 cm (includes dark discolored flaky skin, with a few sporadic non-intact sites within the dark discolored flaky skin). Spoke with pt Nurse, Kerrie, concerning wound . Suggested either a multivitamin or Lele to support wound healing, Kerrie stated he would speak with MD concerning a Multivitamin as he did not believe the pt would drink the Lele. HT: 57 WT: 155 LB (70.45 kg) BMI: 24.28 (Normal) GI: WNL, Soft, Non-tender BM: 08/01 x1 I/O: 920/Not Noted Skin: Area of Concern, CELI Leg abrasions with reddening, LT hand bruise, Sacral/Buttock open wound Alfredo: 16 Diet Order: Pureed, ANIKA Estimated Energy Needs: ( Geriatric, CBW) 1196-6417 kcals (25-30 kcals/ kg) 70-85g Pro (1.0-1.2 g/kg) 5142-6252 ml (25-30 ml/kg) Current Diet Order/ Nutrition Support Pureed, ANIKA Pertinent Medications Maalox (PRN), Lipitor, Colace, MOM (PRN) Pertinent Labs No Labs To Report. Nutritional Hx/Data Height 5 ft 7 in Height (Calculated Centimeters) 170.2 Current Weight (lbs) 155 lb Weight (Calculated Kilograms) 70.3 Weight (Calculated Grams) 90698.8 [place] Body Weight 148 LB(67.27 kg) % [place] Body Weight 105 Body Mass Index (BMI) 24.3 Weight Status Approriate GI Symptoms GI Symptoms None Last BM 08/01 x1 Skin Integrity/Comment: Skin: Area of Concern, CELI Leg abrasions with reddening, LT hand bruise, Sacral/Buttock open wound Alfredo: 16 Current %PO Good (75-100%) Estimated Nutritional Goals BEE in Kcals: Using Current wt Calories/Kcals/Kg 25-30 Kcals Calculated 3894-6851 Protein: Using Current wt Protein g/k.0-1.2 Protein Calculated 70-85 Fluid: ml 2285-0042 ml (25-30 ml/kg) Nutritional Problem 1. Problem Problem Increased vitamin/mineral utilization Etiology r/t wound healing Signs/Symptoms: aeb CELI Leg abrasions with reddening, LT hand bruise, Sacral/Buttock open wound. Intervention/Recommendation Comments 1. Continue with Pureed, ANIKA diet as ordered. 2. Recommend addition of multivitamin to support wound healing and skin integrity. Expected Outcomes/Goals Expected Outcomes/Goals 1. PO intake to continue to meet >75% of nutritional needs . 2. Monitor PO intake, wt, nutrition related labs, and skin integrity to trend WNL. 3. F/U as moderate risk in 3-5 days, 08/04-08/06.
--- NOTE | 2019-08-08 23:18 | Progress Notes ---
DATE: 08/08/2019 SUBJECTIVE: Chart reviewed and the patient interviewed. Also discussed the patient's condition with the staff and reviewed records and labs. The patient is still agitated and in irritable and angry mood. The patient also is still suspicious and paranoid and refused to take his medications sometimes. Also, yesterday refused to eat all day according to the staff. He is still confused and angry and in irritable mood and easily agitated with difficulty following any directions. ASSESSMENT: The patient is still agitated and is still aggressive. TREATMENT PLAN: Continue to monitor behavior and condition closely. Also, continue adjusting medications and I changed his medications yesterday. Also, continue to work on his poor impulse control and followup. [facility]# [id number]
[2019-08-09] MEDS ORDERED: Maalox 30 mL Cup PO PRN (01:54)
[2019-08-09] MEDS ORDERED: Magnesium Hydroxide (MOM) 30 mL UDC PO PRN (02:13)
[2019-08-09] MEDS ORDERED: Menthol/Zinc Oxide Oint 113gm Tube TP PRN (02:16)
--- NOTE | 2019-08-09 12:07 | Internal Medicine Prog Note ---
Internal Medicine Subjective - Subjective Service Date: 08/09/19 Patient seen and examined:: with staff Patient is:: awake, asleep, arousable, aren chair, agitated, confused Patient Complaints of:: other (Anxiety.) Per staff patient has:: no adverse event, no episodes of fall, agitated, confused Internal Medicine Objective - Physical Exam Vitals and I&O: Vital Signs Temp 97.2 F 08/09/19 06:46 Pulse 68 08/09/19 06:46 Resp 18 08/09/19 06:46 BP 107/67 08/09/19 06:46 Pulse Ox 97 08/09/19 06:46 Intake & Output 08/08/19 08/09/19 08/09/19 18:59 06:59 18:59 Intake Total 0 Balance 0 Intake: Oral 0 Other: # Voids 2 2 # Bowel Movements 0 Active Medications: Current Medications Acetaminophen (Tylenol) 650 mg PO Q4H PRN PRN Reason: Pain or Fever >101 Stop: 10/08/19 01:50 Al Hydrox/Mg Hydrox/Simethicone (Maalox) 30 ml PO Q4HR PRN PRN Reason: GI DISTRESS Stop: 10/08/19 01:53 Aspirin (Aspirin) 325 mg PO DAILY [facility] Stop: 10/08/19 08:59 Last Admin: 08/09/19 08:29 Dose: 325 mg Atorvastatin Calcium (Lipitor) 80 mg PO DAILY [facility]; Protocol Stop: 10/08/19 08:59 Last Admin: 08/09/19 08:29 Dose: 80 mg Calamine/Phenol (Calmoseptine) 1 appl TP QID PRN PRN Reason: skin irritation, reddenned are Stop: 10/08/19 08:59 Clopidogrel Bisulfate (Plavix) 75 mg PO DAILY [facility] Stop: 10/08/19 08:59 Last Admin: 08/09/19 08:29 Dose: 75 mg Divalproex Sodium (Depakote Sprinkle) 500 mg PO HS [facility]; Protocol Stop: 10/08/19 20:59 Divalproex Sodium (Depakote Sprinkle) 250 mg PO DAILY [facility]; Protocol Stop: 10/08/19 08:59 Last Admin: 08/09/19 08:36 Dose: 250 mg Docusate Sodium (Colace) 100 mg PO BID [facility] Stop: 10/08/19 08:59 Last Admin: 08/09/19 08:29 Dose: 100 mg Lorazepam (Ativan) 0.5 mg PO Q4HR PRN; Protocol PRN Reason: anxiety and agitation Stop: 10/08/19 02:10 Magnesium Hydroxide (Milk Of Magnesia) 30 ml PO HS PRN PRN Reason: Constipation Stop: 10/08/19 02:12 Quetiapine Fumarate (Seroquel) 50 mg PO BID [facility]; Protocol Stop: 10/08/19 08:59 Last Admin: 08/09/19 08:39 Dose: 50 mg Quetiapine Fumarate 100 mg/ (Quetiapine Fumarate 50 mg) 150 mg PO HS [facility] Stop: 10/08/19 20:59 Zolpidem Tartrate (Ambien) 5 mg PO HS PRN PRN Reason: Insomnia Stop: 10/08/19 02:19 Physical Exam: Patient is awake, anxious and irritable, no new complaints. General: weak, alert, disheveled HEENT: NC/AT Neck: Supple, No JVD Lungs: other (no acute respiratory distress) Cardiovascular: RRR Abdomen: soft, non-tender, non-distended Extremities: ecchymosis Neurological: no change, unable to follow command (confused, demented) Internal Medicine Assmt/Plan - Assessment Assessment: Insomnia. Acute psychosis. Dementia. Schizoaffective disorder. H/o CAD. H/o Stroke. H/o Hyperlipidemia. - Plan Plan: Continuation of care. Monitor labs and vitals. Monitor diet/nutritional support. Psych management per Psych. Continue present meds as directed. Continue present care management. Nutritional Asmnt/Malnutr-PDOC - Dietary Evaluation Malnutrition Findings (Please click <Entered> for more info): Nutritional Asmnt/Malnutrition Start: 08/01/19 15: 45 Text: Status: Complete Freq: Protocol: Document 08/01/19 15:55 YUN (Rec: 08/01/19 16:00 YUN [email or web address]) Nutritional Asmnt/Malnutrition Patient General Information Nutritional Screening Low Risk Diagnosis Psychosis Pertinent Medical Hx/Surgical Hx TIA, CAD, Hyperlipidemia, Schizoaffective Disorder, Bipolar Type, Dementia Subjective Information Pt is a 68-year-old male admitted on 07/26 on a 5150. Pt is eating 75-100% of meals Per Meal/Nutrition Activity Record. Dietary is currently providing an estimated 2370 kcals and 107gm Pro, per Pt intake, this is providing an estimated 2070 kcals and 94gm Pro to meet 100% kcal and 100+ % Pro needs- adequate to meet estimated nutritional needs. 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 Open sites have 100% red tissue. No odor, no drainage. Madiha-wound intact. Surrounding tissue has dark discolored flaky skin and scar tissue. Moisture barrier cream nearly covered all of the non-intact areas. Entire site measures 13.0 cm x 15.0 cm (includes dark discolored flaky skin, with a few sporadic non-intact sites within the dark discolored flaky skin). Spoke with pt Nurse, Kerrie, concerning wound . Suggested either a multivitamin or Lele to support wound healing, Kerrie stated he would speak with MD concerning a Multivitamin as he did not believe the pt would drink the Lele. HT: 57 WT: 155 LB (70.45 kg) BMI: 24.28 (Normal) GI: WNL, Soft, Non-tender BM: 08/01 x1 I/O: 920/Not Noted Skin: Area of Concern, CELI Leg abrasions with reddening, LT hand bruise, Sacral/Buttock open wound Alfredo: 16 Diet Order: Pureed, ANIKA Estimated Energy Needs: ( Geriatric, CBW) 5543-7351 kcals (25-30 kcals/ kg) 70-85g Pro (1.0-1.2 g/kg) 3122-1163 ml (25-30 ml/kg) Current Diet Order/ Nutrition Support Pureed, ANIKA Pertinent Medications Maalox (PRN), Lipitor, Colace, MOM (PRN) Pertinent Labs No Labs To Report. Nutritional Hx/Data Height 1.7 m Height (Calculated Centimeters) 170.2 Current Weight (lbs) 70.307 kg Weight (Calculated Kilograms) 70.3 Weight (Calculated Grams) 54557.8 [place] Body Weight 148 LB(67.27 kg) % [place] Body Weight 105 Body Mass Index (BMI) 24.3 Weight Status Approriate GI Symptoms GI Symptoms None Last BM 08/01 x1 Skin Integrity/Comment: Skin: Area of Concern, CELI Leg abrasions with reddening, LT hand bruise, Sacral/Buttock open wound Alfredo: 16 Current %PO Good (75-100%) Estimated Nutritional Goals BEE in Kcals: Using Current wt Calories/Kcals/Kg 25-30 Kcals Calculated 6738-2349 Protein: Using Current wt Protein g/k.0-1.2 Protein Calculated 70-85 Fluid: ml 6903-3754 ml (25-30 ml/kg) Nutritional Problem 1. Problem Problem Increased vitamin/mineral utilization Etiology r/t wound healing Signs/Symptoms: aeb CELI Leg abrasions with reddening, LT hand bruise, Sacral/Buttock open wound. Intervention/Recommendation Comments 1. Continue with Pureed, ANIKA diet as ordered. 2. Recommend addition of multivitamin to support wound healing and skin integrity. Expected Outcomes/Goals Expected Outcomes/Goals 1. PO intake to continue to meet >75% of nutritional needs . 2. Monitor PO intake, wt, nutrition related labs, and skin integrity to trend WNL. 3. F/U as moderate risk in 3-5 days, 08/04-08/06.
--- NOTE | 2019-08-10 00:29 | Progress Notes ---
DATE: 08/09/2019 Case was discussed with staff of the patient, reviewed records. This is a 68-year-old male who was admitted on 07/26/2019 because he was on a hold. The patient was selectively mute, disoriented, needing redirection, easily agitated. The patient is responding to internal stimuli, making hand gestures in regards to the voices, easily irritable, agitated, needing a lot of redirection with his TIA, coronary artery disease, hyperlipidemia with a history of dementia and bipolar disorder. The patient was sent yesterday to [facility] and he was supposed to have been kept there; however, he is back, he was not eating or drinking for a few days, but he was medically cleared. The patient continues to be irritable, angry, continues to have poor insight, unable to make safe plan for self-care and internally preoccupied. No side effects with the medication, no sedation, no nausea, no extrapyramidal symptoms. He is on Depakote 500 mg at bedtime and 250 mg in the morning and Seroquel 150 mg at bedtime and 50 mg twice a day. No side effects with the medication, no sedation, no nausea, no extrapyramidal symptoms. We will continue outpatient group therapy, milieu therapy, and adjust medications as needed. JOB# [id number]
--- NOTE | 2019-08-10 16:38 | Internal Medicine Prog Note ---
Internal Medicine Subjective - Subjective Service Date: 08/10/19 Patient seen and examined:: with staff Patient is:: awake, asleep, arousable, aren chair, agitated, confused Patient Complaints of:: other (Anxiety.) Per staff patient has:: no adverse event, no episodes of fall, agitated, confused Internal Medicine Objective - Physical Exam Vitals and I&O: Vital Signs Temp 98.0 F 08/10/19 14:38 Pulse 64 08/10/19 14:38 Resp 20 08/10/19 14:38 BP 127/70 08/10/19 14:38 Pulse Ox 92 08/10/19 14:38 Intake & Output 08/09/19 08/10/19 08/10/19 18:59 06:59 18:59 Intake Total 1100 240 Balance 1100 240 Intake: Oral 1100 240 Other: # Voids 2 2 # Bowel Movements 1 Active Medications: Current Medications Acetaminophen (Tylenol) 650 mg PO Q4H PRN PRN Reason: Pain or Fever >101 Stop: 10/08/19 01:50 Al Hydrox/Mg Hydrox/Simethicone (Maalox) 30 ml PO Q4HR PRN PRN Reason: GI DISTRESS Stop: 10/08/19 01:53 Aspirin (Aspirin) 325 mg PO DAILY [facility] Stop: 10/08/19 08:59 Last Admin: 08/10/19 09:19 Dose: 325 mg Atorvastatin Calcium (Lipitor) 80 mg PO DAILY [facility]; Protocol Stop: 10/08/19 08:59 Last Admin: 08/10/19 09:19 Dose: 80 mg Calamine/Phenol (Calmoseptine) 1 appl TP QID PRN PRN Reason: skin irritation, reddenned are Stop: 10/08/19 08:59 Clopidogrel Bisulfate (Plavix) 75 mg PO DAILY [facility] Stop: 10/08/19 08:59 Last Admin: 08/10/19 09:19 Dose: 75 mg Divalproex Sodium (Depakote Sprinkle) 500 mg PO HS [facility]; Protocol Stop: 10/08/19 20:59 Last Admin: 08/09/19 21:57 Dose: 500 mg Divalproex Sodium (Depakote Sprinkle) 250 mg PO DAILY [facility]; Protocol Stop: 10/08/19 08:59 Last Admin: 08/10/19 09:19 Dose: 250 mg Docusate Sodium (Colace) 100 mg PO BID [facility] Stop: 10/08/19 08:59 Last Admin: 08/10/19 09:19 Dose: 100 mg Lorazepam (Ativan) 0.5 mg PO Q4HR PRN; Protocol PRN Reason: anxiety and agitation Stop: 10/08/19 02:10 Magnesium Hydroxide (Milk Of Magnesia) 30 ml PO HS PRN PRN Reason: Constipation Stop: 10/08/19 02:12 Quetiapine Fumarate (Seroquel) 50 mg PO BID [facility]; Protocol Stop: 10/08/19 08:59 Last Admin: 08/10/19 09:20 Dose: 50 mg Quetiapine Fumarate 100 mg/ (Quetiapine Fumarate 50 mg) 150 mg PO HS [facility] Stop: 10/08/19 20:59 Last Admin: 08/09/19 21:58 Dose: 150 mg Zolpidem Tartrate (Ambien) 5 mg PO HS PRN PRN Reason: Insomnia Stop: 10/08/19 02:19 Last Admin: 08/09/19 21:57 Dose: 5 mg Physical Exam: Patient is awake, irritable, easily agitated and irritable. General: weak, alert, disheveled HEENT: NC/AT Neck: Supple, No JVD Lungs: other (no acute respiratory distress) Cardiovascular: RRR Abdomen: soft, non-tender, non-distended Extremities: ecchymosis Neurological: no change, unable to follow command (confused, demented) Internal Medicine Assmt/Plan - Assessment Assessment: Insomnia. Acute psychosis. Dementia. Schizoaffective disorder. H/o CAD. H/o Stroke. H/o Hyperlipidemia. - Plan Plan: Continuation of care. Monitor labs and vitals. Monitor diet/nutritional support. Psych management per Psych. Continue present meds as directed. Continue present care management. Nutritional Asmnt/Malnutr-PDOC - Dietary Evaluation Malnutrition Findings (Please click <Entered> for more info): Nutritional Asmnt/Malnutrition Start: 08/01/19 15: 45 Text: Status: Complete Freq: Protocol: Document 08/01/19 15:55 YUN (Rec: 08/01/19 16:00 YUN [email or web address]) Nutritional Asmnt/Malnutrition Patient General Information Nutritional Screening Low Risk Diagnosis Psychosis Pertinent Medical Hx/Surgical Hx TIA, CAD, Hyperlipidemia, Schizoaffective Disorder, Bipolar Type, Dementia Subjective Information Pt is a 68-year-old male admitted on 07/26 on a 5150. Pt is eating 75-100% of meals Per Meal/Nutrition Activity Record. Dietary is currently providing an estimated 2370 kcals and 107gm Pro, per Pt intake, this is providing an estimated 2070 kcals and 94gm Pro to meet 100% kcal and 100+ % Pro needs- adequate to meet estimated nutritional needs. 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 Open sites have 100% red tissue. No odor, no drainage. Madiha-wound intact. Surrounding tissue has dark discolored flaky skin and scar tissue. Moisture barrier cream nearly covered all of the non-intact areas. Entire site measures 13.0 cm x 15.0 cm (includes dark discolored flaky skin, with a few sporadic non-intact sites within the dark discolored flaky skin). Spoke with pt Nurse, Kerrie, concerning wound . Suggested either a multivitamin or Lele to support wound healing, Kerrie stated he would speak with MD concerning a Multivitamin as he did not believe the pt would drink the Lele. HT: 57 WT: 155 LB (70.45 kg) BMI: 24.28 (Normal) GI: WNL, Soft, Non-tender BM: 08/01 x1 I/O: 920/Not Noted Skin: Area of Concern, CELI Leg abrasions with reddening, LT hand bruise, Sacral/Buttock open wound Alfredo: 16 Diet Order: Pureed, ANIKA Estimated Energy Needs: ( Geriatric, CBW) 0553-2031 kcals (25-30 kcals/ kg) 70-85g Pro (1.0-1.2 g/kg) 4208-2875 ml (25-30 ml/kg) Current Diet Order/ Nutrition Support Pureed, ANIKA Pertinent Medications Maalox (PRN), Lipitor, Colace, MOM (PRN) Pertinent Labs No Labs To Report. Nutritional Hx/Data Height 1.7 m Height (Calculated Centimeters) 170.2 Current Weight (lbs) 70.307 kg Weight (Calculated Kilograms) 70.3 Weight (Calculated Grams) 95369.8 [place] Body Weight 148 LB(67.27 kg) % [place] Body Weight 105 Body Mass Index (BMI) 24.3 Weight Status Approriate GI Symptoms GI Symptoms None Last BM 08/01 x1 Skin Integrity/Comment: Skin: Area of Concern, CELI Leg abrasions with reddening, LT hand bruise, Sacral/Buttock open wound Alfredo: 16 Current %PO Good (75-100%) Estimated Nutritional Goals BEE in Kcals: Using Current wt Calories/Kcals/Kg 25-30 Kcals Calculated 1806-4194 Protein: Using Current wt Protein g/k.0-1.2 Protein Calculated 70-85 Fluid: ml 1361-5550 ml (25-30 ml/kg) Nutritional Problem 1. Problem Problem Increased vitamin/mineral utilization Etiology r/t wound healing Signs/Symptoms: aeb CELI Leg abrasions with reddening, LT hand bruise, Sacral/Buttock open wound. Intervention/Recommendation Comments 1. Continue with Pureed, ANIKA diet as ordered. 2. Recommend addition of multivitamin to support wound healing and skin integrity. Expected Outcomes/Goals Expected Outcomes/Goals 1. PO intake to continue to meet >75% of nutritional needs . 2. Monitor PO intake, wt, nutrition related labs, and skin integrity to trend WNL. 3. F/U as moderate risk in 3-5 days, 08/04-08/06.
--- NOTE | 2019-08-11 04:41 | Progress Notes ---
DATE: 08/10/2019 SUBJECTIVE: The patient was seen and evaluated. The patient's chart reviewed. This is Dr. Santiago covering for Dr. Donato Today on [id number] evaluation, the patient is selectively mute. He presents easily irritable, difficult to engage in coherent conversation. MENTAL STATUS EXAMINATION: Easily irritable, anxious, disorganized thought process. Limited historian. Current Medication reconciliation reviewed. Currently on Depakote, Seroquel 50 mg p.o. b.i.d. and 150 mg at nighttime. ASSESSMENT AND PLAN: 1. The patient who continues to be easily agitated, unpredictable, labile, disorganized. We will continue with the recent adjustments of the medication to continue to reach steady state. [facility]# [id number]
--- NOTE | 2019-08-11 20:26 | Internal Medicine Prog Note ---
Internal Medicine Subjective - Subjective Patient is:: awake, asleep, arousable, aren chair, agitated, confused Patient Complaints of:: other (Anxiety.) Per staff patient has:: no adverse event, no episodes of fall, agitated, confused Internal Medicine Objective - Physical Exam Vitals and I&O: Vital Signs Temp 96.6 F 08/11/19 15:25 Pulse 70 08/11/19 15:25 Resp 20 08/11/19 15:25 BP 101/55 08/11/19 15:25 Pulse Ox 95 08/11/19 15:25 Intake & Output 08/11/19 08/11/19 08/12/19 06:59 18:59 06:59 Intake Total 120 950 Output Total 1 Balance 119 950 Intake: Oral 120 950 Output: Urine/Stool Mix 1 Other: # Voids 1 4 # Bowel Movements 1 1 Active Medications: Current Medications Acetaminophen (Tylenol) 650 mg PO Q4H PRN PRN Reason: Pain or Fever >101 Stop: 10/08/19 01:50 Al Hydrox/Mg Hydrox/Simethicone (Maalox) 30 ml PO Q4HR PRN PRN Reason: GI DISTRESS Stop: 10/08/19 01:53 Aspirin (Aspirin) 325 mg PO DAILY [facility] Stop: 10/08/19 08:59 Last Admin: 08/11/19 10:10 Dose: 325 mg Atorvastatin Calcium (Lipitor) 80 mg PO DAILY [facility]; Protocol Stop: 10/08/19 08:59 Last Admin: 08/11/19 10:10 Dose: 80 mg Calamine/Phenol (Calmoseptine) 1 appl TP QID PRN PRN Reason: skin irritation, reddenned are Stop: 10/08/19 08:59 Clopidogrel Bisulfate (Plavix) 75 mg PO DAILY [facility] Stop: 10/08/19 08:59 Last Admin: 08/11/19 10:10 Dose: 75 mg Divalproex Sodium (Depakote Sprinkle) 500 mg PO HS [facility]; Protocol Stop: 10/08/19 20:59 Last Admin: 08/10/19 21:23 Dose: 500 mg Divalproex Sodium (Depakote Sprinkle) 250 mg PO DAILY [facility]; Protocol Stop: 10/08/19 08:59 Last Admin: 08/11/19 10:09 Dose: 250 mg Docusate Sodium (Colace) 100 mg PO BID [facility] Stop: 10/08/19 08:59 Last Admin: 08/11/19 17:42 Dose: 100 mg Lorazepam (Ativan) 0.5 mg PO Q4HR PRN; Protocol PRN Reason: anxiety and agitation Stop: 10/08/19 02:10 Magnesium Hydroxide (Milk Of Magnesia) 30 ml PO HS PRN PRN Reason: Constipation Stop: 10/08/19 02:12 Quetiapine Fumarate (Seroquel) 50 mg PO BID [facility]; Protocol Stop: 10/08/19 08:59 Last Admin: 08/11/19 17:42 Dose: 50 mg Quetiapine Fumarate 100 mg/ (Quetiapine Fumarate 50 mg) 150 mg PO HS [facility] Stop: 10/08/19 20:59 Last Admin: 08/10/19 21:23 Dose: 150 mg Zolpidem Tartrate (Ambien) 5 mg PO HS PRN PRN Reason: Insomnia Stop: 10/08/19 02:19 Last Admin: 08/09/19 21:57 Dose: 5 mg General: weak, alert HEENT: NC/AT Neck: Supple, No JVD Lungs: other (no acute respiratory distress) Cardiovascular: RRR Abdomen: soft, non-tender, non-distended Extremities: ecchymosis Neurological: no change, unable to follow command (confused, demented) Internal Medicine Assmt/Plan - Assessment Assessment: Dementia Schizoaffective disorder Acute Psychosis Insomnia Hx CAD Hx [place] Hyperlipidemia - Plan Plan: Continue current treatment plan. Monitor Labs.Continue current medications Continue to monitor VS Monitor Diet/Nutritional support. Psych management per Psychiatry. Pain Management. PT/OT prn Safety precaution, Fall precaution, frequent nursing round. Supportive care. Continue collaborating with consulting specialists, case management and nursing team. Nutritional Asmnt/Malnutr-PDOC - Dietary Evaluation Malnutrition Findings (Please click <Entered> for more info): Nutritional Asmnt/Malnutrition Start: 08/01/19 15: 45 Text: Status: Complete Freq: Protocol: Document 08/01/19 15:55 YUN (Rec: 08/01/19 16:00 YUN [email or web address]) Nutritional Asmnt/Malnutrition Patient General Information Nutritional Screening Low Risk Diagnosis Psychosis Pertinent Medical Hx/Surgical Hx TIA, CAD, Hyperlipidemia, Schizoaffective Disorder, Bipolar Type, Dementia Subjective Information Pt is a 68-year-old male admitted on 07/26 on a 5150. Pt is eating 75-100% of meals Per Meal/Nutrition Activity Record. Dietary is currently providing an estimated 2370 kcals and 107gm Pro, per Pt intake, this is providing an estimated 2070 kcals and 94gm Pro to meet 100% kcal and 100+ % Pro needs- adequate to meet estimated nutritional needs. 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 Open sites have 100% red tissue. No odor, no drainage. Madiha-wound intact. Surrounding tissue has dark discolored flaky skin and scar tissue. Moisture barrier cream nearly covered all of the non-intact areas. Entire site measures 13.0 cm x 15.0 cm (includes dark discolored flaky skin, with a few sporadic non-intact sites within the dark discolored flaky skin). Spoke with pt Nurse, Kerrie, concerning wound . Suggested either a multivitamin or Lele to support wound healing, Kerrie stated he would speak with MD concerning a Multivitamin as he did not believe the pt would drink the Lele. HT: 57 WT: 155 LB (70.45 kg) BMI: 24.28 (Normal) GI: WNL, Soft, Non-tender BM: 08/01 x1 I/O: 920/Not Noted Skin: Area of Concern, CELI Leg abrasions with reddening, LT hand bruise, Sacral/Buttock open wound Alfredo: 16 Diet Order: Pureed, ANIKA Estimated Energy Needs: ( Geriatric, CBW) 7151-8640 kcals (25-30 kcals/ kg) 70-85g Pro (1.0-1.2 g/kg) 5267-6793 ml (25-30 ml/kg) Current Diet Order/ Nutrition Support Pureed, ANIKA Pertinent Medications Maalox (PRN), Lipitor, Colace, MOM (PRN) Pertinent Labs No Labs To Report. Nutritional Hx/Data Height 5 ft 7 in Height (Calculated Centimeters) 170.2 Current Weight (lbs) 155 lb Weight (Calculated Kilograms) 70.3 Weight (Calculated Grams) 09448.8 [place] Body Weight 148 LB(67.27 kg) % [place] Body Weight 105 Body Mass Index (BMI) 24.3 Weight Status Approriate GI Symptoms GI Symptoms None Last BM 08/01 x1 Skin Integrity/Comment: Skin: Area of Concern, CELI Leg abrasions with reddening, LT hand bruise, Sacral/Buttock open wound Alfredo: 16 Current %PO Good (75-100%) Estimated Nutritional Goals BEE in Kcals: Using Current wt Calories/Kcals/Kg 25-30 Kcals Calculated 9944-7586 Protein: Using Current wt Protein g/k.0-1.2 Protein Calculated 70-85 Fluid: ml 7716-2075 ml (25-30 ml/kg) Nutritional Problem 1. Problem Problem Increased vitamin/mineral utilization Etiology r/t wound healing Signs/Symptoms: aeb CELI Leg abrasions with reddening, LT hand bruise, Sacral/Buttock open wound. Intervention/Recommendation Comments 1. Continue with Pureed, ANIKA diet as ordered. 2. Recommend addition of multivitamin to support wound healing and skin integrity. Expected Outcomes/Goals Expected Outcomes/Goals 1. PO intake to continue to meet >75% of nutritional needs . 2. Monitor PO intake, wt, nutrition related labs, and skin integrity to trend WNL. 3. F/U as moderate risk in 3-5 days, 08/04-08/06.
--- NOTE | 2019-08-11 21:43 | Progress Notes ---
DATE: 08/11/2019 SUBJECTIVE: The patient was seen and evaluated. The patient's chart reviewed. Covering for Dr. Donato. Today on [id number] evaluation, irritable, derailed in conversation, difficult to engage in a coherent conversation, does not provide much information. MENTAL STATUS EXAMINATION: Anxious, irritable, limited historian overall, unable to assess thought process, thought content. ASSESSMENT AND PLAN: This behavior disturbance is secondary to dementia, disorganized. We will continue with the current medication adjustment as he continues to reach steady state and continue working very closely with mental case coordinator for safe disposition once psychiatrically stabilized, continue with primary psychiatrist's treatment plan and goals. JOB# [id number]
--- NOTE | 2019-08-12 10:04 | Internal Medicine Prog Note ---
Internal Medicine Subjective - Subjective Service Date: 08/12/19 Patient seen and examined:: with staff Patient is:: awake, asleep, arousable, aren chair, agitated, confused Patient Complaints of:: other (Anxiety.) Per staff patient has:: no adverse event, no episodes of fall, agitated, confused Internal Medicine Objective - Physical Exam Vitals and I&O: Vital Signs Temp 98.1 F 08/12/19 06:46 Pulse 56 08/12/19 06:46 Resp 20 08/12/19 06:46 BP 109/65 08/12/19 06:46 Pulse Ox 98 08/12/19 06:46 Intake & Output 08/11/19 08/12/19 08/12/19 18:59 06:59 18:59 Intake Total 950 240 Balance 950 240 Intake: Oral 950 240 Other: # Voids 4 3 # Bowel Movements 1 1 Active Medications: Current Medications Acetaminophen (Tylenol) 650 mg PO Q4H PRN PRN Reason: Pain or Fever >101 Stop: 10/08/19 01:50 Al Hydrox/Mg Hydrox/Simethicone (Maalox) 30 ml PO Q4HR PRN PRN Reason: GI DISTRESS Stop: 10/08/19 01:53 Aspirin (Aspirin) 325 mg PO DAILY [facility] Stop: 10/08/19 08:59 Last Admin: 08/12/19 09:33 Dose: 325 mg Atorvastatin Calcium (Lipitor) 80 mg PO DAILY [facility]; Protocol Stop: 10/08/19 08:59 Last Admin: 08/12/19 09:33 Dose: 80 mg Calamine/Phenol (Calmoseptine) 1 appl TP QID PRN PRN Reason: skin irritation, reddenned are Stop: 10/08/19 08:59 Clopidogrel Bisulfate (Plavix) 75 mg PO DAILY [facility] Stop: 10/08/19 08:59 Last Admin: 08/12/19 09:33 Dose: 75 mg Divalproex Sodium (Depakote Sprinkle) 500 mg PO HS [facility]; Protocol Stop: 10/08/19 20:59 Last Admin: 08/11/19 21:43 Dose: Not Given Divalproex Sodium (Depakote Sprinkle) 250 mg PO DAILY [facility]; Protocol Stop: 10/08/19 08:59 Last Admin: 08/12/19 09:33 Dose: 250 mg Docusate Sodium (Colace) 100 mg PO BID [facility] Stop: 10/08/19 08:59 Last Admin: 08/12/19 09:33 Dose: 100 mg Lorazepam (Ativan) 0.5 mg PO Q4HR PRN; Protocol PRN Reason: anxiety and agitation Stop: 10/08/19 02:10 Magnesium Hydroxide (Milk Of Magnesia) 30 ml PO HS PRN PRN Reason: Constipation Stop: 10/08/19 02:12 Quetiapine Fumarate 100 mg/ (Quetiapine Fumarate 50 mg) 150 mg PO HS [facility] Stop: 10/08/19 20:59 Last Admin: 08/11/19 21:43 Dose: Not Given Quetiapine Fumarate 50 mg/ (Quetiapine Fumarate 25 mg) 75 mg PO BID [facility] Stop: 10/11/19 08:59 Last Admin: 08/12/19 09:33 Dose: 75 mg Zolpidem Tartrate (Ambien) 5 mg PO HS PRN PRN Reason: Insomnia Stop: 10/08/19 02:19 Last Admin: 08/09/19 21:57 Dose: 5 mg Physical Exam: Patient is awake, very anxious, confused, in no acute distress. General: weak, alert HEENT: NC/AT Neck: Supple, No JVD Lungs: other (no acute respiratory distress) Cardiovascular: RRR Abdomen: soft, non-tender, non-distended Extremities: ecchymosis Neurological: no change, unable to follow command (confused, demented) Internal Medicine Assmt/Plan - Assessment Assessment: Insomnia. Anxiety. Acute psychosis. Dementia. Schizoaffective disorder. H/o CAD. H/o Stroke. H/o Hyperlipidemia. - Plan Plan: Continuation of care. Monitor labs and vitals. Monitor diet/nutritional support. Psych management per Psych. Continue present meds as directed. Continue present care management. Nutritional Asmnt/Malnutr-PDOC - Dietary Evaluation Malnutrition Findings (Please click <Entered> for more info): Nutritional Asmnt/Malnutrition Start: 08/01/19 15: 45 Text: Status: Complete Freq: Protocol: Document 08/01/19 15:55 YUN (Rec: 08/01/19 16:00 YUN [email or web address]) Nutritional Asmnt/Malnutrition Patient General Information Nutritional Screening Low Risk Diagnosis Psychosis Pertinent Medical Hx/Surgical Hx TIA, CAD, Hyperlipidemia, Schizoaffective Disorder, Bipolar Type, Dementia Subjective Information Pt is a 68-year-old male admitted on 07/26 on a 5150. Pt is eating 75-100% of meals Per Meal/Nutrition Activity Record. Dietary is currently providing an estimated 2370 kcals and 107gm Pro, per Pt intake, this is providing an estimated 2070 kcals and 94gm Pro to meet 100% kcal and 100+ % Pro needs- adequate to meet estimated nutritional needs. 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 Open sites have 100% red tissue. No odor, no drainage. Madiha-wound intact. Surrounding tissue has dark discolored flaky skin and scar tissue. Moisture barrier cream nearly covered all of the non-intact areas. Entire site measures 13.0 cm x 15.0 cm (includes dark discolored flaky skin, with a few sporadic non-intact sites within the dark discolored flaky skin). Spoke with pt Nurse, Kerrie, concerning wound . Suggested either a multivitamin or Lele to support wound healing, Kerrie stated he would speak with MD concerning a Multivitamin as he did not believe the pt would drink the Lele. HT: 57 WT: 155 LB (70.45 kg) BMI: 24.28 (Normal) GI: WNL, Soft, Non-tender BM: 08/01 x1 I/O: 920/Not Noted Skin: Area of Concern, CELI Leg abrasions with reddening, LT hand bruise, Sacral/Buttock open wound Alfredo: 16 Diet Order: Pureed, ANIKA Estimated Energy Needs: ( Geriatric, CBW) 5219-9931 kcals (25-30 kcals/ kg) 70-85g Pro (1.0-1.2 g/kg) 1019-6180 ml (25-30 ml/kg) Current Diet Order/ Nutrition Support Pureed, ANIKA Pertinent Medications Maalox (PRN), Lipitor, Colace, MOM (PRN) Pertinent Labs No Labs To Report. Nutritional Hx/Data Height 1.7 m Height (Calculated Centimeters) 170.2 Current Weight (lbs) 70.307 kg Weight (Calculated Kilograms) 70.3 Weight (Calculated Grams) 85966.8 [place] Body Weight 148 LB(67.27 kg) % [place] Body Weight 105 Body Mass Index (BMI) 24.3 Weight Status Approriate GI Symptoms GI Symptoms None Last BM 08/01 x1 Skin Integrity/Comment: Skin: Area of Concern, CELI Leg abrasions with reddening, LT hand bruise, Sacral/Buttock open wound Alfredo: 16 Current %PO Good (75-100%) Estimated Nutritional Goals BEE in Kcals: Using Current wt Calories/Kcals/Kg 25-30 Kcals Calculated 9763-4774 Protein: Using Current wt Protein g/k.0-1.2 Protein Calculated 70-85 Fluid: ml 7178-8651 ml (25-30 ml/kg) Nutritional Problem 1. Problem Problem Increased vitamin/mineral utilization Etiology r/t wound healing Signs/Symptoms: aeb CELI Leg abrasions with reddening, LT hand bruise, Sacral/Buttock open wound. Intervention/Recommendation Comments 1. Continue with Pureed, ANIKA diet as ordered. 2. Recommend addition of multivitamin to support wound healing and skin integrity. Expected Outcomes/Goals Expected Outcomes/Goals 1. PO intake to continue to meet >75% of nutritional needs . 2. Monitor PO intake, wt, nutrition related labs, and skin integrity to trend WNL. 3. F/U as moderate risk in 3-5 days, 08/04-08/06.
--- NOTE | 2019-08-12 10:13 | Internal Medicine Prog Note ---
Internal Medicine Subjective - Subjective Service Date: 08/12/19 Patient seen and examined:: with staff Patient is:: awake, asleep, arousable, in bed, agitated, confused Patient Complaints of:: other (Anxiety.) Per staff patient has:: no adverse event, no episodes of fall, agitated, confused Internal Medicine Objective - Physical Exam Vitals and I&O: Vital Signs Temp 98.1 F 08/12/19 06:46 Pulse 56 08/12/19 06:46 Resp 20 08/12/19 06:46 BP 109/65 08/12/19 06:46 Pulse Ox 98 08/12/19 06:46 Intake & Output 08/11/19 08/12/19 08/12/19 18:59 06:59 18:59 Intake Total 950 240 Balance 950 240 Intake: Oral 950 240 Other: # Voids 4 3 # Bowel Movements 1 1 Active Medications: Current Medications Acetaminophen (Tylenol) 650 mg PO Q4H PRN PRN Reason: Pain or Fever >101 Stop: 10/08/19 01:50 Al Hydrox/Mg Hydrox/Simethicone (Maalox) 30 ml PO Q4HR PRN PRN Reason: GI DISTRESS Stop: 10/08/19 01:53 Aspirin (Aspirin) 325 mg PO DAILY [facility] Stop: 10/08/19 08:59 Last Admin: 08/12/19 09:33 Dose: 325 mg Atorvastatin Calcium (Lipitor) 80 mg PO DAILY [facility]; Protocol Stop: 10/08/19 08:59 Last Admin: 08/12/19 09:33 Dose: 80 mg Calamine/Phenol (Calmoseptine) 1 appl TP QID PRN PRN Reason: skin irritation, reddenned are Stop: 10/08/19 08:59 Clopidogrel Bisulfate (Plavix) 75 mg PO DAILY [facility] Stop: 10/08/19 08:59 Last Admin: 08/12/19 09:33 Dose: 75 mg Divalproex Sodium (Depakote Sprinkle) 500 mg PO HS [facility]; Protocol Stop: 10/08/19 20:59 Last Admin: 08/11/19 21:43 Dose: Not Given Divalproex Sodium (Depakote Sprinkle) 250 mg PO DAILY [facility]; Protocol Stop: 10/08/19 08:59 Last Admin: 08/12/19 09:33 Dose: 250 mg Docusate Sodium (Colace) 100 mg PO BID [facility] Stop: 10/08/19 08:59 Last Admin: 08/12/19 09:33 Dose: 100 mg Lorazepam (Ativan) 0.5 mg PO Q4HR PRN; Protocol PRN Reason: anxiety and agitation Stop: 10/08/19 02:10 Magnesium Hydroxide (Milk Of Magnesia) 30 ml PO HS PRN PRN Reason: Constipation Stop: 10/08/19 02:12 Quetiapine Fumarate 100 mg/ (Quetiapine Fumarate 50 mg) 150 mg PO HS [facility] Stop: 10/08/19 20:59 Last Admin: 08/11/19 21:43 Dose: Not Given Quetiapine Fumarate 50 mg/ (Quetiapine Fumarate 25 mg) 75 mg PO BID [facility] Stop: 10/11/19 08:59 Last Admin: 08/12/19 09:33 Dose: 75 mg Zolpidem Tartrate (Ambien) 5 mg PO HS PRN PRN Reason: Insomnia Stop: 10/08/19 02:19 Last Admin: 08/09/19 21:57 Dose: 5 mg Physical Exam: Patient is awake, remains very confused and agitated. General: weak, alert HEENT: NC/AT Neck: Supple, No JVD Lungs: other (no acute respiratory distress) Cardiovascular: RRR Abdomen: soft, non-tender, non-distended Extremities: ecchymosis Neurological: no change, unable to follow command (confused, demented) Internal Medicine Assmt/Plan - Assessment Assessment: Insomnia. Anxiety. Acute psychosis. Dementia. Schizoaffective disorder. H/o CAD. H/o Stroke. H/o Hyperlipidemia. - Plan Plan: Continuation of care. Monitor labs and vitals. Monitor diet/nutritional support. Psych management per Psych. Continue present meds as directed. Continue present care management. Nutritional Asmnt/Malnutr-PDOC - Dietary Evaluation Malnutrition Findings (Please click <Entered> for more info): Nutritional Asmnt/Malnutrition Start: 08/01/19 15: 45 Text: Status: Complete Freq: Protocol: Document 08/01/19 15:55 YUN (Rec: 08/01/19 16:00 YUN [email or web address]) Nutritional Asmnt/Malnutrition Patient General Information Nutritional Screening Low Risk Diagnosis Psychosis Pertinent Medical Hx/Surgical Hx TIA, CAD, Hyperlipidemia, Schizoaffective Disorder, Bipolar Type, Dementia Subjective Information Pt is a 68-year-old male admitted on 07/26 on a 5150. Pt is eating 75-100% of meals Per Meal/Nutrition Activity Record. Dietary is currently providing an estimated 2370 kcals and 107gm Pro, per Pt intake, this is providing an estimated 2070 kcals and 94gm Pro to meet 100% kcal and 100+ % Pro needs- adequate to meet estimated nutritional needs. 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 Open sites have 100% red tissue. No odor, no drainage. Madiha-wound intact. Surrounding tissue has dark discolored flaky skin and scar tissue. Moisture barrier cream nearly covered all of the non-intact areas. Entire site measures 13.0 cm x 15.0 cm (includes dark discolored flaky skin, with a few sporadic non-intact sites within the dark discolored flaky skin). Spoke with pt Nurse, Kerrie, concerning wound . Suggested either a multivitamin or Lele to support wound healing, Kerrie stated he would speak with MD concerning a Multivitamin as he did not believe the pt would drink the Lele. HT: 57 WT: 155 LB (70.45 kg) BMI: 24.28 (Normal) GI: WNL, Soft, Non-tender BM: 08/01 x1 I/O: 920/Not Noted Skin: Area of Concern, CELI Leg abrasions with reddening, LT hand bruise, Sacral/Buttock open wound Alfredo: 16 Diet Order: Pureed, ANIKA Estimated Energy Needs: ( Geriatric, CBW) 5649-6348 kcals (25-30 kcals/ kg) 70-85g Pro (1.0-1.2 g/kg) 3918-7180 ml (25-30 ml/kg) Current Diet Order/ Nutrition Support Pureed, ANIKA Pertinent Medications Maalox (PRN), Lipitor, Colace, MOM (PRN) Pertinent Labs No Labs To Report. Nutritional Hx/Data Height 1.7 m Height (Calculated Centimeters) 170.2 Current Weight (lbs) 70.307 kg Weight (Calculated Kilograms) 70.3 Weight (Calculated Grams) 52066.8 [place] Body Weight 148 LB(67.27 kg) % [place] Body Weight 105 Body Mass Index (BMI) 24.3 Weight Status Approriate GI Symptoms GI Symptoms None Last BM 08/01 x1 Skin Integrity/Comment: Skin: Area of Concern, CELI Leg abrasions with reddening, LT hand bruise, Sacral/Buttock open wound Alfredo: 16 Current %PO Good (75-100%) Estimated Nutritional Goals BEE in Kcals: Using Current wt Calories/Kcals/Kg 25-30 Kcals Calculated 2283-2217 Protein: Using Current wt Protein g/k.0-1.2 Protein Calculated 70-85 Fluid: ml 9272-3873 ml (25-30 ml/kg) Nutritional Problem 1. Problem Problem Increased vitamin/mineral utilization Etiology r/t wound healing Signs/Symptoms: aeb CELI Leg abrasions with reddening, LT hand bruise, Sacral/Buttock open wound. Intervention/Recommendation Comments 1. Continue with Pureed, ANIKA diet as ordered. 2. Recommend addition of multivitamin to support wound healing and skin integrity. Expected Outcomes/Goals Expected Outcomes/Goals 1. PO intake to continue to meet >75% of nutritional needs . 2. Monitor PO intake, wt, nutrition related labs, and skin integrity to trend WNL. 3. F/U as moderate risk in 3-5 days, 08/04-08/06.
--- NOTE | 2019-08-12 19:11 | Progress Notes ---
DATE: 08/12/2019 SUBJECTIVE: Chart reviewed and the patient interviewed. Also discussed the patient's condition with the staff and reviewed records and labs. The patient continued to be confused and restless and in irritable and angry mood. The patient also is still unable to provide any safe plan for self-care and cannot remember when was the last time he ate or drank. The patient also is still selective in taking Depakote and he spits Depakote. The patient also still easily agitated and in angry mood. Otherwise, the patient is compliant with other medications. He also still needs a lot of redirections and monitoring. ASSESSMENT: The patient is still confused and considered to be gravely disabled. TREATMENT PLAN: We will place the patient on 30 days certificate. Also, we will increase Seroquel to 75 mg twice a day and 150 mg at bedtime. Also, we will change Depakote to Depakote liquid in a dose of 250 mg in the morning and 500 mg at bedtime. Also, continue to work on his agitation and irritability and continue to follow up closely. JOB# [id number]
--- NOTE | 2019-08-13 16:11 | Internal Medicine Prog Note ---
Internal Medicine Subjective - Subjective Service Date: 08/13/19 Patient is:: awake, asleep, arousable, in bed, agitated, confused Patient Complaints of:: other (Anxiety.) Per staff patient has:: no adverse event, no episodes of fall, agitated, confused Internal Medicine Objective - Physical Exam Vitals and I&O: Vital Signs Temp 98.2 F 08/13/19 13:58 Pulse 70 08/13/19 13:58 Resp 18 08/13/19 13:58 BP 134/64 08/13/19 13:58 Pulse Ox 99 08/13/19 13:58 Intake & Output 08/12/19 08/13/19 08/13/19 18:59 06:59 18:59 Intake Total 800 360 Balance 800 360 Intake: Oral 800 360 Other: # Voids 3 2 # Bowel Movements 0 0 Active Medications: Current Medications Acetaminophen (Tylenol) 650 mg PO Q4H PRN PRN Reason: Pain or Fever >101 Stop: 10/08/19 01:50 Al Hydrox/Mg Hydrox/Simethicone (Maalox) 30 ml PO Q4HR PRN PRN Reason: GI DISTRESS Stop: 10/08/19 01:53 Aspirin (Aspirin) 325 mg PO DAILY [facility] Stop: 10/08/19 08:59 Last Admin: 08/13/19 09:43 Dose: 325 mg Atorvastatin Calcium (Lipitor) 80 mg PO DAILY [facility]; Protocol Stop: 10/08/19 08:59 Last Admin: 08/13/19 09:43 Dose: 80 mg Calamine/Phenol (Calmoseptine) 1 appl TP QID PRN PRN Reason: skin irritation, reddenned are Stop: 10/08/19 08:59 Clopidogrel Bisulfate (Plavix) 75 mg PO DAILY [facility] Stop: 10/08/19 08:59 Last Admin: 08/13/19 09:43 Dose: 75 mg Divalproex Sodium (Depakote Sprinkle) 500 mg PO HS [facility]; Protocol Stop: 10/08/19 20:59 Last Admin: 08/12/19 20:58 Dose: 500 mg Divalproex Sodium (Depakote Sprinkle) 250 mg PO DAILY [facility]; Protocol Stop: 10/08/19 08:59 Last Admin: 08/13/19 09:43 Dose: 250 mg Docusate Sodium (Colace) 100 mg PO BID [facility] Stop: 10/08/19 08:59 Last Admin: 08/13/19 09:43 Dose: 100 mg Lorazepam (Ativan) 0.5 mg PO Q4HR PRN; Protocol PRN Reason: anxiety and agitation Stop: 10/08/19 02:10 Magnesium Hydroxide (Milk Of Magnesia) 30 ml PO HS PRN PRN Reason: Constipation Stop: 10/08/19 02:12 Quetiapine Fumarate (Seroquel) 50 mg PO BID [facility] Stop: 10/12/19 08:59 Last Admin: 08/13/19 09:43 Dose: 50 mg Quetiapine Fumarate (Seroquel) 200 mg PO HS [facility] Stop: 10/12/19 20:59 Zolpidem Tartrate (Ambien) 5 mg PO HS PRN PRN Reason: Insomnia Stop: 10/08/19 02:19 Last Admin: 08/12/19 20:59 Dose: 5 mg General: weak, alert HEENT: NC/AT Neck: Supple, No JVD Lungs: other (no acute respiratory distress) Cardiovascular: RRR Abdomen: soft, non-tender, non-distended Extremities: ecchymosis Neurological: no change, unable to follow command (confused, demented) Internal Medicine Assmt/Plan - Assessment Assessment: Dementia. Schizoaffective disorder. H/o CAD. H/o Stroke. H/o Hyperlipidemia. - Plan Plan: Continuation of care. Monitor labs and vitals. Monitor diet/nutritional support. Psych management per Psych. Continue present meds as directed. Continue current treatment plan as ordered. Nutritional Asmnt/Malnutr-PDOC - Dietary Evaluation Malnutrition Findings (Please click <Entered> for more info): Nutritional Asmnt/Malnutrition Start: 08/01/19 15: 45 Text: Status: Complete Freq: Protocol: Document 08/01/19 15:55 YUN (Rec: 08/01/19 16:00 YUN [id number]) Nutritional Asmnt/Malnutrition Patient General Information Nutritional Screening Low Risk Diagnosis Psychosis Pertinent Medical Hx/Surgical Hx TIA, CAD, Hyperlipidemia, Schizoaffective Disorder, Bipolar Type, Dementia Subjective Information Pt is a 68-year-old male admitted on 07/26 on a 5150. Pt is eating 75-100% of meals Per Meal/Nutrition Activity Record. Dietary is currently providing an estimated 2370 kcals and 107gm Pro, per Pt intake, this is providing an estimated 2070 kcals and 94gm Pro to meet 100% kcal and 100+ % Pro needs- adequate to meet estimated nutritional needs. 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 Open sites have 100% red tissue. No odor, no drainage. Madiha-wound intact. Surrounding tissue has dark discolored flaky skin and scar tissue. Moisture barrier cream nearly covered all of the non-intact areas. Entire site measures 13.0 cm x 15.0 cm (includes dark discolored flaky skin, with a few sporadic non-intact sites within the dark discolored flaky skin). Spoke with pt Nurse, Kerrie, concerning wound . Suggested either a multivitamin or Lele to support wound healing, Kerrie stated he would speak with MD concerning a Multivitamin as he did not believe the pt would drink the Lele. HT: 57 WT: 155 LB (70.45 kg) BMI: 24.28 (Normal) GI: WNL, Soft, Non-tender BM: 08/01 x1 I/O: 920/Not Noted Skin: Area of Concern, CLEI Leg abrasions with reddening, LT hand bruise, Sacral/Buttock open wound Alfredo: 16 Diet Order: Pureed, ANIKA Estimated Energy Needs: ( Geriatric, CBW) 2733-0686 kcals (25-30 kcals/ kg) 70-85g Pro (1.0-1.2 g/kg) 5355-3371 ml (25-30 ml/kg) Current Diet Order/ Nutrition Support Pureed, ANIKA Pertinent Medications Maalox (PRN), Lipitor, Colace, MOM (PRN) Pertinent Labs No Labs To Report. Nutritional Hx/Data Height 5 ft 7 in Height (Calculated Centimeters) 170.2 Current Weight (lbs) 155 lb Weight (Calculated Kilograms) 70.3 Weight (Calculated Grams) 69918.8 [place] Body Weight 148 LB(67.27 kg) % [place] Body Weight 105 Body Mass Index (BMI) 24.3 Weight Status Approriate GI Symptoms GI Symptoms None Last BM 08/01 x1 Skin Integrity/Comment: Skin: Area of Concern, CELI Leg abrasions with reddening, LT hand bruise, Sacral/Buttock open wound Alfredo: 16 Current %PO Good (75-100%) Estimated Nutritional Goals BEE in Kcals: Using Current wt Calories/Kcals/Kg 25-30 Kcals Calculated 6179-9112 Protein: Using Current wt Protein g/k.0-1.2 Protein Calculated 70-85 Fluid: ml 5988-2152 ml (25-30 ml/kg) Nutritional Problem 1. Problem Problem Increased vitamin/mineral utilization Etiology r/t wound healing Signs/Symptoms: aeb CELI Leg abrasions with reddening, LT hand bruise, Sacral/Buttock open wound. Intervention/Recommendation Comments 1. Continue with Pureed, ANIKA diet as ordered. 2. Recommend addition of multivitamin to support wound healing and skin integrity. Expected Outcomes/Goals Expected Outcomes/Goals 1. PO intake to continue to meet >75% of nutritional needs . 2. Monitor PO intake, wt, nutrition related labs, and skin integrity to trend WNL. 3. F/U as moderate risk in 3-5 days, 08/04-08/06.
--- NOTE | 2019-08-13 16:49 | Progress Notes ---
DATE: Chart reviewed and the patient interviewed. Also discussed the patient's condition with the staff and reviewed records and labs. The patient still have difficulty sleeping at night and according to staff he only slept 2 hours last night and he is resisting going to sleep. The patient also is still irritable and agitated and yells and screams at staff for no reason. The patient also is still in angry mood. Otherwise, the patient is compliant with taking his medications with no side effects of medications. ASSESSMENT: The patient is still agitated and still paranoid with difficulty falling asleep. TREATMENT PLAN: We will continue monitoring his behavior and his condition closely. Also, we will change Seroquel to 50 mg twice a day and 200 mg at bedtime. Also waiting for Depakote blood level and the result is not back yet. JOB# [id number]
--- NOTE | 2019-08-14 12:49 | Discharge Summary ---
DATE OF DISCHARGE: 08/14/2019 AGE: 68. SEX: Male. PHYSICIAN: Dr. Donato. FINAL DIAGNOSIS AND PRIMARY DIAGNOSIS: Unspecified psychosis. SECONDARY DIAGNOSES: Dementia, moderate to severe, with psychotic features and behavioral disturbances. REASON FOR HOSPITALIZATION: The patient was admitted to the hospital from [facility] on a 5150 hold because of increased agitation and irritability and aggressive behavior in the facility. HOSPITAL COURSE: The patient continued to be extremely irritable and agitated. The patient also was restless and he was hyperverbal and aggressive with the staff. The patient also was easily agitated and uncooperative with the staff. The patient also was resisting care and was not sleeping good at night. Also, was getting violent when staff was trying to help him with his ADLs. The patient was given Seroquel and the dose adjusted to 50 mg twice a day and 200 mg at bedtime and also he was given Depakote and the dose adjusted to 250 mg in the morning and 500 mg at bedtime. Depakote blood level that was done on 07/30/2019 was 18.9. The patient had difficulty sleeping and also at times was refusing to take Depakote, but Depakote was changed to the sprinkler form and that helped with his compliance. PHYSICAL EXAMINATION: Showed that the patient had no major medical problems while in the hospital and Dr. Newton monitored the patient's condition. AFTER DISCHARGE PLANS: The patient discharged from the hospital and returned to [facility] with plans to follow him there. EXPECTED OUTCOME AFTER DISCHARGE: Fair if the patient continued to take his medications and follow up with discharge plans. [facility]# [id number]
--- NOTE | 2019-08-14 14:49 | Internal Medicine Prog Note ---
Internal Medicine Subjective - Subjective Service Date: 08/14/19 Patient seen and examined:: with staff Patient is:: awake, asleep, arousable, in bed, agitated, confused Patient Complaints of:: other (Anxiety.) Per staff patient has:: no adverse event, no episodes of fall, agitated, confused Internal Medicine Objective - Physical Exam Vitals and I&O: Vital Signs Temp 97.8 F 08/13/19 20:13 Pulse 78 08/13/19 20:13 Resp 18 08/14/19 08:00 BP 115/66 08/13/19 20:13 Pulse Ox 93 08/13/19 20:13 Intake & Output 08/13/19 08/14/19 08/14/19 18:59 06:59 18:59 Intake Total 120 Balance 120 Intake: Oral 120 Other: # Voids 4 1 # Bowel Movements 0 1 Active Medications: Current Medications Acetaminophen (Tylenol) 650 mg PO Q4H PRN PRN Reason: Pain or Fever >101 Stop: 10/08/19 01:50 Al Hydrox/Mg Hydrox/Simethicone (Maalox) 30 ml PO Q4HR PRN PRN Reason: GI DISTRESS Stop: 10/08/19 01:53 Aspirin (Aspirin) 325 mg PO DAILY [facility] Stop: 10/08/19 08:59 Last Admin: 08/14/19 08:29 Dose: 325 mg Atorvastatin Calcium (Lipitor) 80 mg PO DAILY [facility]; Protocol Stop: 10/08/19 08:59 Last Admin: 08/14/19 08:28 Dose: 80 mg Calamine/Phenol (Calmoseptine) 1 appl TP QID PRN PRN Reason: skin irritation, reddenned are Stop: 10/08/19 08:59 Clopidogrel Bisulfate (Plavix) 75 mg PO DAILY [facility] Stop: 10/08/19 08:59 Last Admin: 08/14/19 08:27 Dose: 75 mg Divalproex Sodium (Depakote Sprinkle) 500 mg PO HS [facility]; Protocol Stop: 10/08/19 20:59 Last Admin: 08/13/19 21:14 Dose: 500 mg Divalproex Sodium (Depakote Sprinkle) 250 mg PO DAILY [facility]; Protocol Stop: 10/08/19 08:59 Last Admin: 08/14/19 08:30 Dose: 250 mg Docusate Sodium (Colace) 100 mg PO BID DANNY Stop: 10/08/19 08:59 Last Admin: 08/14/19 08:28 Dose: 100 mg Lorazepam (Ativan) 0.5 mg PO Q4HR PRN; Protocol PRN Reason: anxiety and agitation Stop: 10/08/19 02:10 Last Admin: 08/13/19 21:15 Dose: 0.5 mg Magnesium Hydroxide (Milk Of Magnesia) 30 ml PO HS PRN PRN Reason: Constipation Stop: 10/08/19 02:12 Quetiapine Fumarate (Seroquel) 50 mg PO BID DANNY Stop: 10/12/19 08:59 Last Admin: 08/14/19 08:29 Dose: 50 mg Quetiapine Fumarate (Seroquel) 200 mg PO HS DANNY Stop: 10/12/19 20:59 Last Admin: 08/13/19 21:14 Dose: 200 mg Zolpidem Tartrate (Ambien) 5 mg PO HS PRN PRN Reason: Insomnia Stop: 10/08/19 02:19 Last Admin: 08/14/19 00:14 Dose: 5 mg Physical Exam: Patient is awake, getting ready for discharge. Patient will continue present care management. General: weak, alert HEENT: NC/AT Neck: Supple, No JVD Lungs: other (no acute respiratory distress) Cardiovascular: RRR Abdomen: soft, non-tender, non-distended Extremities: ecchymosis Neurological: no change, unable to follow command (confused, demented) Internal Medicine Assmt/Plan - Assessment Assessment: Dementia with behavioral disturbances. Schizoaffective disorder. History of Stroke. History of Hyperlipidemia. History of TIA. History of CAD. - Plan Plan: Continuation of care. Monitor vitals and labs. Continue present meds as directed. Monitor diet/nutritional support. Supportive care. Psych management per Psych. Continue current treatment plan as ordered. Nutritional Asmnt/Malnutr-PDOC - Dietary Evaluation Malnutrition Findings (Please click <Entered> for more info): Nutritional Asmnt/Malnutrition Start: 08/01/19 15: 45 Text: Status: Complete Freq: Protocol: Document 08/01/19 15:55 YUN (Rec: 08/01/19 16:00 [email or web address] [id number]) Nutritional Asmnt/Malnutrition Patient General Information Nutritional Screening Low Risk Diagnosis Psychosis Pertinent Medical Hx/Surgical Hx TIA, CAD, Hyperlipidemia, Schizoaffective Disorder, Bipolar Type, Dementia Subjective Information Pt is a 68-year-old male admitted on 07/26 on a 5150. Pt is eating 75-100% of meals Per Meal/Nutrition Activity Record. Dietary is currently providing an estimated 2370 kcals and 107gm Pro, per Pt intake, this is providing an estimated 2070 kcals and 94gm Pro to meet 100% kcal and 100+ % Pro needs- adequate to meet estimated nutritional needs. 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 Open sites have 100% red tissue. No odor, no drainage. Madiha-wound intact. Surrounding tissue has dark discolored flaky skin and scar tissue. Moisture barrier cream nearly covered all of the non-intact areas. Entire site measures 13.0 cm x 15.0 cm (includes dark discolored flaky skin, with a few sporadic non-intact sites within the dark discolored flaky skin). Spoke with pt Nurse, Kerrie, concerning wound . Suggested either a multivitamin or Lele to support wound healing, Kerrie stated he would speak with MD concerning a Multivitamin as he did not believe the pt would drink the Lele. HT: 57 WT: 155 LB (70.45 kg) BMI: 24.28 (Normal) GI: WNL, Soft, Non-tender BM: 08/01 x1 I/O: 920/Not Noted Skin: Area of Concern, CELI Leg abrasions with reddening, LT hand bruise, Sacral/Buttock open wound Alfredo: 16 Diet Order: Pureed, ANIKA Estimated Energy Needs: ( Geriatric, CBW) 9611-6751 kcals (25-30 kcals/ kg) 70-85g Pro (1.0-1.2 g/kg) 0271-9068 ml (25-30 ml/kg) Current Diet Order/ Nutrition Support Pureed, ANIKA Pertinent Medications Maalox (PRN), Lipitor, Colace, MOM (PRN) Pertinent Labs No Labs To Report. Nutritional Hx/Data Height 1.7 m Height (Calculated Centimeters) 170.2 Current Weight (lbs) 70.307 kg Weight (Calculated Kilograms) 70.3 Weight (Calculated Grams) 64929.8 [place] Body Weight 148 LB(67.27 kg) % [place] Body Weight 105 Body Mass Index (BMI) 24.3 Weight Status Approriate GI Symptoms GI Symptoms None Last BM 08/01 x1 Skin Integrity/Comment: Skin: Area of Concern, CELI Leg abrasions with reddening, LT hand bruise, Sacral/Buttock open wound Alfredo: 16 Current %PO Good (75-100%) Estimated Nutritional Goals BEE in Kcals: Using Current wt Calories/Kcals/Kg 25-30 Kcals Calculated 3098-8865 Protein: Using Current wt Protein g/k.0-1.2 Protein Calculated 70-85 Fluid: ml 9432-9710 ml (25-30 ml/kg) Nutritional Problem 1. Problem Problem Increased vitamin/mineral utilization Etiology r/t wound healing Signs/Symptoms: aeb CELI Leg abrasions with reddening, LT hand bruise, Sacral/Buttock open wound. Intervention/Recommendation Comments 1. Continue with Pureed, ANIKA diet as ordered. 2. Recommend addition of multivitamin to support wound healing and skin integrity. Expected Outcomes/Goals Expected Outcomes/Goals 1. PO intake to continue to meet >75% of nutritional needs . 2. Monitor PO intake, wt, nutrition related labs, and skin integrity to trend WNL. 3. F/U as moderate risk in 3-5 days, 08/04-08/06.
== END 2019-08-14 14:20 | DRG 885 ==
LOC: GERO 13:30 → UNDODISIN 08-08 19:15
PROVIDERS: ADMIT Psychiatry & Neurology Psychiatry; ATTEND Psychiatry & Neurology Psychiatry
DX: F25.9 Schizoaffective disorder, unspecified (principal); F23 Brief psychotic disorder; F03.91 Unspecified dementia, unspecified severity, with behavioral disturbance; Z66 Do not resuscitate; I25.10 Atherosclerotic heart disease of native coronary artery without angina pectoris; E78.5 Hyperlipidemia, unspecified; G47.00 Insomnia, unspecified; F41.9 Anxiety disorder, unspecified; Z86.73 Personal history of transient ischemic attack (TIA), and cerebral infarction without residual deficits
CPT/HCPCS: 83036-90; Z7610